=== PATIENT | male | born 1950 | race Caucasian/White ===

== ENCOUNTER 2019-06-23 09:11 | Inpatient (IN) ==
[2019-06-23] MEDS ORDERED: ONDANSETRON HCL/PF 2 MG/ML VIAL IV PRN (15:55)
[2019-06-23] MEDS ORDERED: ENOXAPARIN SODIUM 40 MG/0.4 ML SYRG SC SCH (16:00)
--- NOTE | 2019-06-23 16:22 | HP ---
Chief Complaint - Chief Complaint Date of Service: 06/23/19 Time of Service: 09:30 Chief Complaint: vomiting History of Present Illness: Kamran is a 69 y/o man who reports that he has been vomiting since Thursday pm. pt reports his stomach aches. pt reports that he can not lay on his right side. pt reports he has not had a bowel movement since 3 days ago then it was diarrhea. He only had one episode of diarrhea. In talking with him further, his symptoms actually began last THURSDAY evening. They persist. He has never had a similar kind of vomiting before. Both he and his noticed he has had abdominal distension, which he has also never had previously. When he vomits, he becomes a little less distended, but then the distension returns. He cannot even keep water down. Lying on his right side increases his generalized abdominal pain which feels like bloating or gas. When he vomits he feels better for a little while but then the bloating and pain come back. He has had only one stool since Thursday, which was brown diarrhea. No hematemesis. No blood in his diarrhea stool. He has a history of GERD and takes omeprazole. He has early Parkinson's and is on amantadine. he has a history of hypertension and takes atenolol. His weight is stable going back to March [id number], even at today's visit. He has had no fever, chills or sweats. He has no urinary symptoms. Medical History (Last Reviewed 06/23/19 @ 16:12 by Bird Gomez MD) Hypertension (Chronic) Arthritis (Chronic) Cyst Onset Date: ~1948 subcutaneous cyst located on the right buttock , bilopsy done Neoplasm of uncertain behavior Onset Date: ~1948 right upper back 0.6cm, biopsy done. / papule with dark center on left upper back , biopsy done. Telangiectasis Onset Date: Unknown scattered broken blood vessels located on left nose Depression Onset Date: ~07/18/16 GERD (gastroesophageal reflux disease) Gout Hearing loss Impotence Moderate episode of recurrent major depressive disorder Raynauds disease Onset Date: ~2005 Rhinitis, chronic Onset Date: ~05/27/13 Benign familial tremor Colon polyp Onset Date: ~2013 Dysphagia Hypertrophy of prostate with urinary obstruction Lack of motivation Rosacea Testicular cancer Onset Date: ~1980 Thoracic spine pain Onset Date: ~10/16/14 Surgical History: Surgical History (Last Reviewed 06/23/19 @ 16:12 by Bird Gomez MD) Cataract Onset Date: ~10/2012 bilateral. 08/2010 right and 10/2012 left Cornea transplant recipient Onset Date: ~12/2016 bilateral sept. 17th Esophageal dilatation History of esophagogastroduodenoscopy nichole History of nonmelanoma skin cancer Onset Date: ~03/2018 [facility]-removed two cancerous areas on back History of orchiectomy H/O colonoscopy Onset Date: ~07/18/15 06/21/13 with biopsy Vinicio tubular adenoma x5, one with serrated features. 07/18/15 [facility] negative recheck 5 years. Family History: Family History (Last Reviewed 06/23/19 @ 16:12 by Bird Gomez MD) Brother Cancer prostate and colon Sister Cancer breast Sister Cornea transplant recipient Mother CAD (coronary artery disease) Hypertension Myocardial infarction Father Cancer colon Brother S/P triple vessel bypass ATV accident causing injury Social History: (Last Reviewed 06/23/19 @ 16:12 by Bird Gomez MD) Social History: adopted: No foster care: No half-way: No Marital status: lives independently: No household members: spouse number of children: 3 caregiver/support person: No current occupational status: retired Highest education level completed: high school graduate Service: No Tobacco: Smoking Status: Current every day smoker Smokeless tobacco user: chewing tobacco Alcohol: alcohol intake: current Alcohol type: beer alcohol intake frequency: holiday/special occasion Substance Use: substance use type: does not use Dietary Habits: caffeine: Yes Review Of Systems (GEN) - Review of Systems Generalized/Overall Review: Absent: Chills, Fever EENTM: Absent: Eye Pain, Blurred Vision Respiratory: Absent: Cough, Shortness of Breath Cardiac: Absent: Chest Pain, Edema Abdominal: Present: Nausea, Vomiting, Abdominal Pain, Diarrhea. Absent: Hematemesis, Constipation, Melena, Bright blood from rectum Genitourinary: Absent: Burning, Urgency, Frequency Musculoskeletal: Present: Joint Pain - mild chronic Neurological: Present: Tremors, Pre-existing Deficit. Absent: Headache Skin: Absent: Lesions, Rash Endocrine: Present: No Symptoms Reported Misc: All systems neg except as marked Allergies/Adverse Reactions: Allergies Allergy/AdvReac Type Severity Reaction Status Date / Time iodine AdvReac Mild RASH Verified 06/23/19 16:03 Home Medications: HOME MEDICATIONS Ibuprofen [Motrin] 200 - 400 mg PO Q6H PRN 06/29/15 [Last Taken Unknown] Multivitamins [Multivitamin Leanna] 1 cap PO DAILY 06/29/15 [Last Taken Unknown] prednisoLONE ACETATE [Pred Forte 1%] 1 drp OP HS 06/29/15 [Last Taken Unknown] aspirin 81 mg tablet,delayed release 81 mg PO DAILY 01/22/18 [Last Taken Unknown] omeprazole 20 mg tablet,delayed release 20 mg PO DAILY #90 tab 03/11/18 [Last Taken Unknown] minocycline 100 mg capsule 100 mg PO DAILY cap 05/28/18 [Last Taken Unknown] carboxymethylcellulose sodium 0.5 % eye drops 1 drp OP QID 08/03/18 [Last Taken Unknown] atenolol 50 mg tablet 50 mg PO BID #60 tab 05/03/19 [Last Taken Unknown] tamsulosin 0.4 mg capsule 0.8 mg PO DAILY #60 cap 05/03/19 [Last Taken Unknown] amantadine HCl 100 mg capsule 100 mg PO BID #60 cap 06/10/19 [Last Taken Unknown] clonazepam 0.5 mg tablet See Rx Instructions .ROUTE .COMPLEX #60 tablet 06/10/19 [Last Taken Unknown] duloxetine 30 mg capsule,delayed release 30 mg PO DAILY #90 cap 06/10/19 [Last Taken Unknown] levothyroxine 50 mcg tablet 50 mcg PO DAILY #30 tab 06/10/19 [Last Taken Unknown] finasteride 5 mg tablet 5 mg PO DAILY #90 tab 06/22/19 [Last Taken Unknown] ondansetron 8 mg disintegrating tablet 8 mg PO QID #30 tab 06/23/19 [Last Taken Unknown] Exam - Exam Constitutional: Present: Alert, Oriented x3, Cooperative, Well developed, Well nourished, No distress ENT Exam: Present: normal ENT inspection, hearing grossly normal Eye Exam: bilateral eye: normal inspection, PERRL, EOMI Neck: Absent: lymphadenopathy (R), lymphadenopathy (L), thyromegaly Back Exam: Present: normal inspection, no CVA tenderness Respiratory: Present: lungs clear, no respiratory distress Cardiovascular/Chest: Present: normal peripheral pulses, regular rate, rhythm, no gallop, no JVD, no murmur Peripheral Pulses: carotid (R): 1+, carotid (L): 1+, dorsalis-pedis (R): 1+, dorsalis-pedis (L): 1+ Abdomen: Present: soft, no hepatospenomegaly, no masses, tender - mildy, diffusely, more so in upper abdomen, distended - slight, hypoactive /Rectal: Present: Exam deferred Extremity: Present: normal inspection, no pedal edema, normal capillary refill Skin Exam: Present: normal color, warm/dry, no cyanosis Lymphatic: Present: no adenopathy Neurologic: Present: normal mood/affect. Absent: motor weakness Appearance: Present: appropriate appearance, appropriate insight, neat, no memory impairment Eye contact: Present: cooperative, good eye contact, normal speech Thoughts: Present: normal thought pattern Diagnostic Studies: as an oupt earlier today had a mildly elevated wbc count, a slightly low sodium and a urinalysis with 2 plus bacteria but no leukocytes and negative for nitrate. culture sent. CT of abdomen and pelvis today reported by radiologist to show a partial small bowel obstruction in terminal ilium. Assessment/Plan - Assessment/Plan (1) Nausea and vomiting Assessment: plan ng tube and as needed iv ondansetron. has slightly low sodium. will give ns iv and recheck chemistries tomorrow morning. Problem: Acute Qualifiers: Vomiting type: unspecified Vomiting Intractability: non-intractable Qualified Code(s): R11.2 - Nausea with vomiting, unspecified (2) Generalized abdominal pain Problem: Acute (3) Partial small bowel obstruction Assessment: slightly elevated wbc and slightly low sodium. plan surgery consult, NG tube, IV and following. Problem: Acute (4) Tobacco abuse Problem: Chronic (5) Parkinsons Problem: Chronic (6) GERD (gastroesophageal reflux disease) Problem: Chronic Qualifiers: Esophagitis presence: esophagitis presence not specified Qualified Code(s): K21.9 - Gastro-esophageal reflux disease without esophagitis (7) Benign essential hypertension Problem: Chronic
--- NOTE | 2019-06-23 17:38 | PN ---
Progess Note - Interim Date: 06/23/19 Time: 17:37 Narrative: 06/23/19 17:37 ng tube in good position and may be used.
--- NOTE | 2019-06-23 17:42 | CONS ---
HPI - General Date of Service: 06/23/19 Source: patient, family, RN/MD, RN notes reviewed, old records Exam Limitations: no limitations - History of Present Illness Timing/Duration: other - Since 06/19/2019 Modifying Factors - (Worsens): Reports: eating Modifying Factors - (Improves): Reports: other - Vomiting Associated Symptoms: other - No fever, chills. He does report some abdominal distention and discomfort which is relieved by vomiting Allergies/Adverse Reactions: Allergies iodine Adverse Reaction (Mild, Verified 06/23/19 16:03) RASH Home Medications: Home Medications Medication Instructions Recorded Last Taken Ibuprofen [Motrin] 200 - 400 mg PO Q6H PRN 06/29/15 Unknown Multivitamins [Multivitamin Leanna] 1 cap PO DAILY 06/29/15 Unknown prednisoLONE ACETATE [Pred Forte 1 drp EACHEYE HS 06/29/15 Unknown 1%] aspirin 81 mg tablet,delayed 81 mg PO HS 01/22/18 Unknown release omeprazole 20 mg tablet,delayed 20 mg PO DAILY #90 tab 03/11/18 Unknown release minocycline 100 mg capsule 100 mg PO DAILY cap 05/28/18 Unknown carboxymethylcellulose sodium 0.5 1 drp EACHEYE QID 08/03/18 Unknown % eye drops atenolol 50 mg tablet 50 mg PO BID #60 tab 05/03/19 Unknown tamsulosin 0.4 mg capsule 0.8 mg PO DAILY #60 cap 05/03/19 Unknown amantadine HCl 100 mg capsule 100 mg PO BID #60 cap 06/10/19 Unknown duloxetine 30 mg capsule,delayed 30 mg PO DAILY #90 cap 06/10/19 Unknown release levothyroxine 50 mcg tablet 50 mcg PO DAILY #30 tab 06/10/19 Unknown finasteride 5 mg tablet 5 mg PO DAILY #90 tab 06/22/19 Unknown clonazePAM [Klonopin] 0.5 mg PO BID 06/23/19 Unknown ondansetron 8 mg disintegrating 8 mg PO QID #30 tab 06/23/19 Unknown tablet Procedures Closure of skin and subcutaneous tissue of other sites (05/03/03) Inspection of Lower Intestinal Tract, Via Natural or Artificial Opening Endoscopic (07/18/15) Review of Systems - Review of Systems Generalized/Overall Review: Present: Malaise. Absent: Chills, Fever EENTM: Present: No Symptoms Reported Respiratory: Absent: Cough, Shortness of Breath Cardiac: Absent: Chest Pain Abdominal: Present: Nausea, Vomiting, Diarrhea - 1 stool this week and it was "diarrhea", otherwise no bowel movements since 06/19/2019, Other - He has had severe heartburn all week. Absent: Hematemesis Musculoskeletal: Present: No Symptoms Reported Neurological: Present: Other - His Parkinson's disease is stable Skin: Present: No Symptoms Reported Endocrine: Present: No Symptoms Reported Physical Examination - Exam Vital Signs: Vital Signs - Last Taken Temp 36.4 C 06/23/19 16:08 Pulse 67 06/23/19 16:08 Resp 16 06/23/19 16:08 BP 157/82 H 06/23/19 16:08 Pulse Ox 99 06/23/19 16:08 O2 Oxygen Delivery Method Room Air Constitutional: Present: Alert, Oriented x3, Cooperative, Well nourished, Mild d istress ENT Exam: Present: normal ENT inspection, other - NG tube is present Eye Exam: bilateral eye: normal inspection Neck: Present: normal inspection Respiratory: Present: no respiratory distress Cardiovascular/Chest: Present: regular rate, rhythm Abdomen: Present: other - Slightly distended, but soft. Tympany to percussion throughout. No percussion tenderness. He has some mild discomfort to direct palpation in all 4 quadrants, but demonstrates no guarding or rebound No abdominal incisions. 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 The appendix appears normal. There is no inflammation adjacent to the small intestine. His laboratory data was obtained through an office order so it is not in the acute packet--- these results were reviewed. - Assessments/Findings (1) Partial small bowel obstruction Diagnosis(s): He has not had previous abdominal surgery, and so there is no reason for adhesions. There is no inflammation adjacent to the small bowel to suggest inflammatory bowel disease. The likelihood of a small bowel tumor is low. His last colonoscopy was normal. The appendix appears normal on CT. He has passed some gas since admission. He feels better since the nasogastric tube was placed and his stomach emptied. Would recommend continued NG suction overnight. We will repeat a flat and upright abdominal exam in the morning and proceed according to the results. Problem: Acute
[2019-06-23] MEDS: ENOXAPARIN SODIUM 40 MG/0.4 ML SYRG SC SCH (19:08)
[2019-06-23] MEDS: NORMAL SALINE 1,000 ML IV PRN (19:08)
[2019-06-23] MEDS: PANTOPRAZOLE SODIUM 40 MG in NORMAL SALINE 100 ML IV SCH (19:13)
[2019-06-24] MEDS: NORMAL SALINE 1,000 ML IV PRN ×3 (03:35→20:52)
[2019-06-24] MEDS ORDERED: TETRACAINE/BENZOCAINE/BUTAMBEN 20 SPRAY BTL TP PRN (06:19)
[2019-06-24 06:32] LABS: Hemoglobin 13.6 gm/dL (13.5-18.0); Mean Corpuscular Hemoglobin 31.3 pg (27-31); Mean Platelet Volume 10.8 fl (8-11.3); Neutrophil # 8.9 K/mm3 (1.3-6.0); Neutrophil % 76.8 % (42-75.0); Platelet Count 185 K/mm3 (150-450); Red Blood Count 4.35 M/mm3 (4.7-6.0); Red Cell Distribution Width 12.9 % (11.5-14.0); White Blood Count 11.6 K/mm3 (4.0-10.5)
[2019-06-24 06:41] LABS: Albumin * 3.5 gm/dl (3.4-5.0); Anion Gap 11.8 mmol/L (6.8-13.8); BUN/Creatinine Ratio 10.7 (9.0-21.6); Bilirubin, Total 0.8 mg/dL (0.0-1.1); Ca. Corrected For Albumin 8.6 mg/dL (8.4-10.2); Calcium * 8.5 mg/dL (7.9-10.9); Carbon Dioxide 26.4 mmol/L (24-32.6); Potassium 4.2 mmol/L (3.4-4.6)
--- NOTE | 2019-06-24 06:58 | PN ---
Subjective - Date and Time Seen Date: 06/24/19 Time: 05:55 Subjective Narrative: ng tube hurts throat. feels much better otherwise. no nausea. no abdominal pain. abdomen is flat now. has had two bowel movements since admission. nurse emptied 700 ml gastric fluid this morning representing the state game protector accumulation. labs are pending this morning. Objective - Review of Systems Generalized/Overall Review: Denies: Weakness, Chills, Fever, Diaphoresis EENTM: Denies: Eye Pain, Blurred Vision Respiratory: Denies: Cough, Shortness of Breath Cardiac: Denies: Chest Pain, Edema Abdominal: Denies: Nausea, Abdominal Pain, Constipation, Diarrhea Genitourinary Symptoms: Denies: Burning, Frequency Musculoskeletal Complaints: Denies: Joint Pain, Back Pain Neurological: Denies: Headache, Anxiety, Depressed Skin: Denies: Lesions, Rash Endocrine: Denies: Intolerance to Cold, Intolerance to Heat - Vitals Vitals: Last Vital Signs Temp 37.0 C 06/24/19 02:14 Pulse 71 06/24/19 02:14 Resp 18 06/24/19 02:14 BP 144/77 06/24/19 02:14 Pulse Ox 98 06/24/19 02:14 bp slightly high, but not with the new BP targets for those 60 and older, less than 150/90. vitals stable. - Abnormal Lab Findings Abnormal Lab Findings: Abnormal Lab Results 06/24/19 Range/Units 06:10 WBC 11.6 H (4.0-10.5) K/mm3 RBC 4.35 L (4.7-6.0) M/mm3 Hct 40.0 L (42.0-52.0) % MCH 31.3 H (27-31) pg Immature Gran % (Auto) 0.50 H (0.001-0.429) % Immature Gran # (Auto) 0.06 H (0.000-0.0310) K/mm3 Neutrophils % 76.8 H (42-75.0) % Lymphocytes % 9.7 L (20-51) % Monocytes % 10.9 H (0.0-9) % Neutrophils # 8.9 H (1.3-6.0) K/mm3 Lymphocytes # 1.13 L (1.5-3.5) k/mm3 Monocytes # 1.3 H (0.0-1.0) k/mm3 - Exam Constitutional: Present: Alert, Oriented x3, Cooperative, Well developed, Well nourished, No distress ENT Exam: Present: normal ENT inspection, hearing grossly normal Neck: Present: normal inspection. Absent: lymphadenopathy (R), lymphadenopathy (L), thyromegaly Breasts: Present: Other - male Respiratory: Present: lungs clear, no respiratory distress Cardiovascular/Chest: Present: normal peripheral pulses, regular rate, rhythm, no edema, no gallop, no JVD, no murmur Abdomen: Present: soft, nontender, nondistended, no hepatospenomegaly, no mass es, hypoactive Extremity: Present: normal range of motion Skin Exam: Present: normal color, warm/dry, no cyanosis Lymphatic: Present: no adenopathy Neurologic: Present: normal mood/affect. Absent: motor weakness Appearance: Present: appropriate appearance, appropriate insight, neat, no memory impairment Eye contact: Present: cooperative, good eye contact, normal speech Thoughts: Present: normal thought pattern Assessment/Plan - Problems/Diagnosis (1) Nausea and vomiting Problem: Acute Qualifiers: Vomiting type: unspecified Vomiting Intractability: non-intractable Qualified Code(s): R11.2 - Nausea with vomiting, unspecified Narrative: will watch ng output till noon today. if minimal, will clamp ng, then possibly home tomorrow or the next day. waiting on this morning's labs. (2) Generalized abdominal pain Problem: Resolved (3) Partial small bowel obstruction Problem: Acute Narrative: will do small bowel series as outpatient. (4) Tobacco abuse Problem: Chronic (5) Parkinsons Problem: Chronic (6) GERD (gastroesophageal reflux disease) Problem: Chronic Qualifiers: Esophagitis presence: esophagitis presence not specified Qualified Code(s): K21.9 - Gastro-esophageal reflux disease without esophagitis (7) Benign essential hypertension Problem: Chronic
[2019-06-24] MEDS ORDERED: BISACODYL 5 MG TABLET.DR PO ONE (14:51)
[2019-06-24] MEDS: PANTOPRAZOLE SODIUM 40 MG in NORMAL SALINE 100 ML IV SCH (17:23)
[2019-06-24] MEDS: ENOXAPARIN SODIUM 40 MG/0.4 ML SYRG SC SCH (17:23)
--- NOTE | 2019-06-24 18:12 | PN ---
Subjective - Date and Time Seen Date: 06/24/19 Time: 09:00 Objective Objective Narrative: feels much better. Two stools last night and some gas. No nausea - Review of Systems Generalized/Overall Review: Denies: Chills, Fever EENTM: Reports: Throat Pain - from NG Respiratory: Denies: Cough, Shortness of Breath Cardiac: Denies: Chest Pain Abdominal: Reports: Other - no pain, less distention Genitourinary Symptoms: Reports: No Symptoms Reported Musculoskeletal Complaints: Reports: No Symptoms Reported Neurological: Reports: No Symptoms Reported Skin: Reports: No Symptoms Reported - Vitals Vitals: Last Vital Signs Temp 37.2 C 06/24/19 14:00 Pulse 56 L 06/24/19 14:00 Resp 20 06/24/19 14:00 BP 145/76 06/24/19 14:00 Pulse Ox 99 06/24/19 14:00 - Abnormal Lab Findings Abnormal Lab Findings: Abnormal Lab Results 06/24/19 Range/Units 06:10 WBC 11.6 H (4.0-10.5) K/mm3 RBC 4.35 L (4.7-6.0) M/mm3 Hct 40.0 L (42.0-52.0) % MCH 31.3 H (27-31) pg Immature Gran % (Auto) 0.50 H (0.001-0.429) % Immature Gran # (Auto) 0.06 H (0.000-0.0310) K/mm3 Neutrophils % 76.8 H (42-75.0) % Lymphocytes % 9.7 L (20-51) % Monocytes % 10.9 H (0.0-9) % Neutrophils # 8.9 H (1.3-6.0) K/mm3 Lymphocytes # 1.13 L (1.5-3.5) k/mm3 Monocytes # 1.3 H (0.0-1.0) k/mm3 - Exam Constitutional: Present: Alert, Oriented x3, Cooperative, Well developed, No distress ENT Exam: Present: normal ENT inspection Neck: Present: normal inspection Respiratory: Present: no respiratory distress Cardiovascular/Chest: Present: regular rate, rhythm Abdomen: Present: soft, nontender, nondistended /Rectal: Present: Exam deferred Extremity: Present: normal inspection Skin Exam: Present: normal color Appearance: Present: appropriate appearance, appropriate insight, neat Eye contact: Present: cooperative, good eye contact, normal speech Thoughts: Present: normal thought pattern Assessment/Plan Plan Narrative: will trial clear liquids with NG clamped. Dulcolax. Ambulate. If tolerates po could d/c NG - Problems/Diagnosis (1) Partial small bowel obstruction Problem: Acute
[2019-06-25] MEDS: NORMAL SALINE 1,000 ML IV PRN ×3 (04:40→19:44)
[2019-06-25 06:39] LABS: Hematocrit 40.3 % (42.0-52.0); Hemoglobin 13.5 gm/dL (13.5-18.0); Mean Cell Volume 90.8 fl (78-100); Mean Corpuscular Hemoglobin 30.4 pg (27-31); Mean Corpuscular Hgb Conc 33.5 g/dl (32-36); Mean Platelet Volume 10.4 fl (8-11.3); Neutrophil # 8.2 K/mm3 (1.3-6.0); Platelet Count 179 K/mm3 (150-450); Red Blood Count 4.44 M/mm3 (4.7-6.0); Red Cell Distribution Width 12.6 % (11.5-14.0); White Blood Count 10.2 K/mm3 (4.0-10.5)
[2019-06-25 06:47] LABS: Anion Gap 13.3 mmol/L (6.8-13.8); BUN/Creatinine Ratio 10.3 (9.0-21.6); Calcium * 8.4 mg/dL (7.9-10.9); Carbon Dioxide 23.4 mmol/L (24-32.6); Estimated Creat Clear 69.5; Potassium 3.7 mmol/L (3.4-4.6)
--- NOTE | 2019-06-25 07:51 | PN ---
Subjective - Date and Time Seen Date: 06/25/19 Time: 07:45 Subjective Narrative: He feels much better except he has a sore throat and a cough. He feels hungry. He has moved his bowels and passed gas. He has no abdominal pain Objective - Review of Systems Generalized/Overall Review: Denies: Chills, Fever EENTM: Reports: Throat Pain Respiratory: Reports: Cough. Denies: Shortness of Breath Cardiac: Reports: Other - His blood pressure has been elevated. Denies: Chest Pain Abdominal: Denies: Nausea, Vomiting, Abdominal Pain Genitourinary Symptoms: Reports: No Symptoms Reported Musculoskeletal Complaints: Reports: No Symptoms Reported Skin: Reports: No Symptoms Reported - Vitals Vitals: Last Vital Signs Temp 37.1 C 06/25/19 06:26 Pulse 80 06/25/19 06:26 Resp 18 06/25/19 06:26 BP 166/71 H 06/25/19 06:26 Pulse Ox 93 06/25/19 06:26 - Abnormal Lab Findings Abnormal Lab Findings: Abnormal Lab Results 06/25/19 06/25/19 Range/Units 06:30 06:30 RBC 4.44 L (4.7-6.0) M/mm3 Hct 40.3 L (42.0-52.0) % Neutrophils % 80.0 H (42-75.0) % Lymphocytes % 7.5 L (20-51) % Monocytes % 11.1 H (0.0-9) % Neutrophils # 8.2 H (1.3-6.0) K/mm3 Lymphocytes # 0.76 L (1.5-3.5) k/mm3 Monocytes # 1.1 H (0.0-1.0) k/mm3 Carbon Dioxide 23.4 L (24-32.6) mmol/L Random Glucose 126 H (70-110) mg/dL - Exam Constitutional: Present: Alert, Oriented x3, Cooperative, Well developed, Well nourished, No distress ENT Exam: Present: normal ENT inspection, other - Sore throat, nasal congestion, hoarse Neck: Present: normal inspection Respiratory: Present: other - Upper airway noise Cardiovascular/Chest: Present: regular rate, rhythm Abdomen: Present: soft, nontender, other - Still somewhat tympanitic, however absolutely no tenderness /Rectal: Present: Exam deferred Extremity: Present: normal range of motion, normal inspection Skin Exam: Present: normal color Neurologic: Present: leasing specialist II-XII nml as tested, no motor/sensory deficits Appearance: Present: appropriate appearance, appropriate insight, no memory impairment Eye contact: Present: cooperative, good eye contact Thoughts: Present: normal thought pattern Assessment/Plan Plan Narrative: We will discontinue the nasogastric tube and advance diet. Encourage ambulation. Will restart antihypertensive and levothyroxine. Recommend follow-up with Dr. Elizabeth Brown after discharge to consider small bowel follow-through if needed - Problems/Diagnosis (1) Partial small bowel obstruction Problem: Acute
[2019-06-25] MEDS: LEVOTHYROXINE SODIUM 50 MCG TABLET PO SCH (08:54)
[2019-06-25] MEDS: ATENOLOL 50 MG TABLET PO SCH ×2 (08:54→21:07)
[2019-06-25] MEDS ORDERED: clonazePAM 0.5 MG TABLET PO SCH (09:30)
[2019-06-25] MEDS ORDERED: AMANTADINE HCL 100 MG CAPSULE PO SCH (09:30)
[2019-06-25] MEDS ORDERED: ACETAMINOPHEN 500 MG TABLET PO ONE (11:00)
[2019-06-25] MEDS: ONDANSETRON 8 MG TAB.RAPDIS PO SCH ×3 (12:50→21:08)
[2019-06-25] MEDS: PANTOPRAZOLE SODIUM 40 MG in NORMAL SALINE 100 ML IV SCH ×2 (16:33→16:44)
--- NOTE | 2019-06-25 16:33 | PN ---
Dictated Progress Note - Date and Time Seen: Date: 06/25/19 Time: 16:31 - Progress Note Narrative: Vital Signs - Last Taken Temp 37.3 C 06/25/19 14:05 Pulse 83 06/25/19 14:05 Resp 16 06/25/19 14:05 BP 137/75 06/25/19 14:05 Pulse Ox 95 06/25/19 14:05 Abnormal/Pending Laboratory Last 24 HRS 06/25/19 06/25/19 06:30 06:30 RBC 4.44 L Hct 40.3 L Neutrophils % 80.0 H Lymphocytes % 7.5 L Monocytes % 11.1 H Neutrophils # 8.2 H Lymphocytes # 0.76 L Monocytes # 1.1 H Carbon Dioxide 23.4 L Random Glucose 126 H Although he had tolerated clear liquids with the NG tube clamped, when his diet was advanced he has become more distended and tympanitic. Repeat flat and upright abdominal x-rays show redevelopment of air-fluid levels compatible with a high-grade distal small bowel obstruction I discussed the situation with the patient and his . He has failed a trial of NG decompression. The most likely etiology for the obstruction would be due to previous radiation therapy which did include the right lower quadrant. I explained what would be involved with exploratory laparotomy for release of the obstruction. This may involve small bowel resection. After interactive discussion their questions were answered to their apparent satisfaction and he has given informed consent for exploratory laparotomy for release of small bowel obstruction. We will employ SCDs, chlorhexidine wipes, and IV Mefoxin will be given preop.
[2019-06-25] MEDS ORDERED: fentaNYL CITRATE/PF 50 MCG/ML AMPUL ONE (16:50)
[2019-06-25] MEDS ORDERED: HYDROmorphone HCL 2 MG/ML VIAL ONE (16:50)
[2019-06-25] MEDS ORDERED: LIDOCAINE HCL 20 ML VIAL ONE (16:50)
[2019-06-25] MEDS ORDERED: ONDANSETRON HCL/PF 2 MG/ML VIAL ONE (16:50)
[2019-06-25] MEDS ORDERED: NEOSTIGMINE METHYLSULFATE 1 MG/ML VIAL ONE (16:50)
[2019-06-25] MEDS ORDERED: ROCURONIUM BROMIDE 10 MG/ML VIAL ONE (16:51)
[2019-06-25] MEDS ORDERED: SUCCINYLCHOLINE CHLORIDE 20 MG/ML VIAL ONE (16:51)
[2019-06-25] MEDS ORDERED: GLYCOPYRROLATE 0.2 MG/ML VIAL ONE (16:51)
[2019-06-25] MEDS ORDERED: PROPOFOL VIAL IV ONE (16:51)
--- NOTE | 2019-06-25 17:12 | ANES ---
Anesthesia Pre Procedure Eval Vitals/Labs: Last Vital Signs Temp 37.3 C 06/25/19 14:05 Pulse 83 06/25/19 14:05 Resp 16 06/25/19 14:05 BP 137/75 06/25/19 14:05 Pulse Ox 95 06/25/19 14:05 HOME MEDICATIONS Ibuprofen [Motrin] 200 - 400 mg PO Q6H PRN 06/29/15 [Last Taken Unknown] Multivitamins [Multivitamin Leanna] 1 cap PO DAILY 06/29/15 [Last Taken Unknown] prednisoLONE ACETATE [Pred Forte 1%] 1 drp EACHEYE HS 06/29/15 [Last Taken Unknown] aspirin 81 mg tablet,delayed release 81 mg PO HS 01/22/18 [Last Taken Unknown] omeprazole 20 mg tablet,delayed release 20 mg PO DAILY #90 tab 03/11/18 [Last Taken Unknown] minocycline 100 mg capsule 100 mg PO DAILY cap 05/28/18 [Last Taken Unknown] carboxymethylcellulose sodium 0.5 % eye drops 1 drp EACHEYE QID 08/03/18 [Last Taken Unknown] atenolol 50 mg tablet 50 mg PO BID #60 tab 05/03/19 [Last Taken Unknown] tamsulosin 0.4 mg capsule 0.8 mg PO DAILY #60 cap 05/03/19 [Last Taken Unknown] amantadine HCl 100 mg capsule 100 mg PO BID #60 cap 06/10/19 [Last Taken Unknown] duloxetine 30 mg capsule,delayed release 30 mg PO DAILY #90 cap 06/10/19 [Last Taken Unknown] levothyroxine 50 mcg tablet 50 mcg PO DAILY #30 tab 06/10/19 [Last Taken Unknown] finasteride 5 mg tablet 5 mg PO DAILY #90 tab 06/22/19 [Last Taken Unknown] clonazePAM [Klonopin] 0.5 mg PO BID 06/23/19 [Last Taken Unknown] ondansetron 8 mg disintegrating tablet 8 mg PO QID #30 tab 06/23/19 [Last Taken Unknown] Allergies/Adverse Reactions: Allergies Allergy/AdvReac Type Severity Reaction Status Date / Time iodine AdvReac Mild RASH Verified 06/23/19 16:03 - Planned Procedure Planned Procedure: Exp laparoscopy Medication List Reviewed:: Yes Allergies Verified: Yes Medical History (Last Reviewed 06/25/19 @ 17:11 by Rick Chavis CRNA) Hypertension (Chronic) Arthritis (Chronic) Cyst Onset Date: ~1948 subcutaneous cyst located on the right buttock , bilopsy done Neoplasm of uncertain behavior Onset Date: ~1948 right upper back 0.6cm, biopsy done. / papule with dark center on left upper back , biopsy done. Telangiectasis Onset Date: Unknown scattered broken blood vessels located on left nose Depression Onset Date: ~07/18/16 GERD (gastroesophageal reflux disease) Gout Hearing loss Impotence Moderate episode of recurrent major depressive disorder Raynauds disease Onset Date: ~2005 Rhinitis, chronic Onset Date: ~05/27/13 Benign familial tremor Colon polyp Onset Date: ~2013 Dysphagia Hypertrophy of prostate with urinary obstruction Lack of motivation Rosacea Testicular cancer Onset Date: ~1980 Thoracic spine pain Onset Date: ~10/16/14 Surgical History (Last Reviewed 06/25/19 @ 17:11 by Rick Chavis CRNA) Cataract Onset Date: ~10/2012 bilateral. 08/2010 right and 10/2012 left Cornea transplant recipient Onset Date: ~12/2016 bilateral sept. 17 Esophageal dilatation History of esophagogastroduodenoscopy nichole History of nonmelanoma skin cancer Onset Date: ~03/2018 [facility]-removed two cancerous areas on back History of orchiectomy H/O colonoscopy Onset Date: ~07/18/15 06/21/13 with biopsy Vinicio tubular adenoma x5, one with serrated features. 07/18/15 [facility] negative recheck 5 years. Family History (Last Reviewed 06/25/19 @ 17:11 by Rick Chavis CRNA) Brother Cancer prostate and colon Sister Cancer breast Sister Cornea transplant recipient Mother CAD (coronary artery disease) Hypertension Myocardial infarction Father Cancer colon Brother S/P triple vessel bypass ATV accident causing injury - Family Anesthesia History Family History:: no untoward family reactions to anesthesia, no familial bleeding tendencies, no family history of clotting disorders, no family history of premature - Airway/Neck/Teeth Within Normal Limits:: Yes Teeth Condition: intact Mallampatti Score: 4 Thyromental (T-M) distance: > 6 cm Mandibulo Hyoid distance: > 3 cm - Respiratory Respiratory Physical: lungs clear Smoking Status: Current every day smoker - chews Discussed smoking cessation including day of surgery: Yes Sleep Apnea currently treated: No Sleep Apnea by current assessment: No Discussed Risks/Treatment of TAO: No - Cardiovascular Tolerate Activity: Fair Heart Sounds: S1 & S2, Regular - Gastrointestinal NPO since: 7am - Anesthesia Assessment and Plan ASA Class: PS, III, E Anesthesia Type Plan: General ET
[2019-06-25] MEDS ORDERED: BUPIVACAINE HCL/EPINEPHRINE 50 ML VIAL ONE (17:22)
[2019-06-25] MEDS ORDERED: TAMSULOSIN HCL 0.4 MG CAP.SR.24H PO SCH (18:00)
[2019-06-25] MEDS ORDERED: BUPIVACAINE HCL/EPINEPHRINE 50 ML VIAL IJ ONE (18:06)
[2019-06-25] MEDS: RINGER'S SOLUTION,LACTATED 1,000 ML IV PRN ×2 (19:00→19:41)
[2019-06-25] MEDS ORDERED: MUPIROCIN 22 APPL TUBE TP ONE (19:06)
--- NOTE | 2019-06-25 19:43 | ANES ---
Post Anesthesia Discharge - Transfer of Care Transfer of Care handoff given to nurse: Yes - Discharge from PACU Discharge from PACU when meets criteria: Yes - Discharge to ASU Discharge to ASU-no complications/pt stable: Yes
--- NOTE | 2019-06-25 20:07 | OR ---
Operative Report - Dictated Report Narrative: OPERATIVE REPORT DATE OF OPERATION: 06/25/2019 PREOPERATIVE DIAGNOSIS: Small bowel obstruction POSTOPERATIVE DIAGNOSIS: Small bowel obstruction from adhesions due to radiation OPERATION: Exploratory laparotomy with lysis of adhesions SURGEON: Carlos Cooper MD ANESTHESIA: General endotracheal Rick Chavis CRNA INDICATIONS FOR PROCEDURE: The patient is a 69-year-old male who was admitted with a partial small bowel obstruction. Initially he responded to nasogastric suction however became re-distended with x-ray evidence of persistent small bowel obstruction FINDINGS: Small bowel obstruction in the terminal ileum due to adhesions secondary to prior radiation therapy NARRATIVE OF PROCEDURE: The patient was identified preoperatively and prior to the administration of anesthetic a multidisciplinary timeout was observed. The patient was placed supine, SCDs applied, 2 g of intravenous Mefoxin administered. General endotracheal anesthetic was administered. A Boss catheter and nasogastric tube were placed. The patient's abdomen was prepped wi th Betadine solution and the midline isolated with 4 sterile towels. The remainder the patient was covered with a sterile disposable drape. A low midline skin incision was made skirting to the right of the umbilicus. Dissection was carried through subcutaneous tissue with electrocautery. There was marked radiation change noted in the subcutaneous tissue in the lower one third of the incision. The fascia of the linea alba was incised. The peritoneum was elevated and incised to allow entry into the abdomen under direct vision. There was a small amount of clear yellow peritoneal fluid which was suctioned. A forefinger was inserted. There were no local adhesions, and the fascial incision was extended. Manual and visual exploration of the abdomen was then performed. The proximal small bowel was dilated but viable. The bowel was traced distally where it dove into the right lower quadrant. The terminal ileum was markedly angulated due to foreshortening of the mesentery from radiation reaction. A Bookwalter self-retaining retractor was placed in the right lower quadrant exposed. The foreshortened small bowel mesentery was released by electrocautery division of the foreshortening adhesive tissue. The mobilized terminal ileum was traced traced distally to the ileocecal valve. The peritoneal reflection involving the terminal ileum and cecum was incised to allow the entire terminal ileum to be straightened and inspected. There was evidence of radiation reaction in the last 15-20 cm of the terminal ileum however small bowel content could be readily stripped through this segment into the cecum. Additional small bowel content from the proximal small bowel was then stripped distally, and again passed easily into the cecum. The pelvis was then suctioned clean. The right lower quadrant was inspected for hemostasis which appeared complete. After receiving a correct sponge needle and instrument count attention was turned to closing the abdomen. The small bowel was replaced anatomically and covered with a greater omentum. The fascia and peritoneum in the midline was entered oxygenated with a running suture of 0 PDS. The skin was closed with shani. The operative site was washed and dried. A dressing of Bactroban ointment, folded 4 x 4's, and Medipore tape was applied. The operative procedure was terminated at this point. The patient tolerated the an esthetic and procedure well without complication. There was no measurable blood loss. No specimens were submitted. The patient was transferred to the recovery room awake, extubated, in stable condition. The patient did pull out the NG tube in the recovery room, and a trial will be made without NG suction. Reviewed and electronically signed
[2019-06-25] MEDS: ENOXAPARIN SODIUM 40 MG/0.4 ML SYRG SC SCH (20:56)
[2019-06-25] MEDS ORDERED: ASPIRIN 81 MG TABLET.DR PO SCH (21:00)
[2019-06-25] MEDS: METOCLOPRAMIDE HCL 5 MG/ML VIAL IV SCH (21:13)
--- NOTE | 2019-06-25 22:25 | ANES ---
Post Anesthesia Assessment - Vital Signs Vitals: Last Vital Signs Temp 37.3 C 06/25/19 19:55 Pulse 82 06/25/19 21:07 Resp 14 06/25/19 19:55 BP 133/68 06/25/19 21:07 Pulse Ox 94 06/25/19 20:45 Airway Patency: Normal - Mental Status Level Of Consciousness: Drowsy - Pain Level Pain Score: 0 - N/V Assessment Nausea/Vomiting Presence: None Dehydration:: No
--- NOTE | 2019-06-25 22:36 | PN ---
Subjective - Date and Time Seen Date: 06/25/19 Time: 08:00 Subjective Narrative: Patient is currently comfortable laying in bed. NG tube has been removed. Patient has had breakfast, states he was able to tolerate eggs and Thai toast without complication. Vital signs are stable and is been afebrile. Passing gas. Denies belly pain at this time. Objective - Review of Systems Generalized/Overall Review: Denies: Chills, Fever Respiratory: Denies: Cough, Shortness of Breath Cardiac: Denies: Chest Pain, Edema, Palpitations Abdominal: Reports: Abdominal Pain - Mild discomfort, Constipation, Other - Passing gas. Denies: Nausea, Vomiting, Diarrhea Genitourinary Symptoms: Reports: No Symptoms Reported - Vitals Vitals: Last Vital Signs Temp 37.3 C 06/25/19 19:55 Pulse 82 06/25/19 21:07 Resp 14 06/25/19 19:55 BP 133/68 06/25/19 21:07 Pulse Ox 94 06/25/19 20:45 - Abnormal Lab Findings Abnormal Lab Findings: Abnormal Lab Results 06/25/19 06/25/19 Range/Units 06:30 06:30 RBC 4.44 L (4.7-6.0) M/mm3 Hct 40.3 L (42.0-52.0) % Neutrophils % 80.0 H (42-75.0) % Lymphocytes % 7.5 L (20-51) % Monocytes % 11.1 H (0.0-9) % Neutrophils # 8.2 H (1.3-6.0) K/mm3 Lymphocytes # 0.76 L (1.5-3.5) k/mm3 Monocytes # 1.1 H (0.0-1.0) k/mm3 Carbon Dioxide 23.4 L (24-32.6) mmol/L Random Glucose 126 H (70-110) mg/dL - Exam Constitutional: Present: Alert, Oriented x3, Cooperative, Elderly ENT Exam: Present: hearing grossly normal. Absent: nasal congestion, nasal rafat inage Respiratory: Present: lungs clear, normal breath sounds Cardiovascular/Chest: Present: regular rate, rhythm, no murmur Abdomen: Present: soft, nontender, nondistended, no rebound tenderness. Absent: tender, guarding, rigidity Appearance: Present: appropriate appearance, appropriate insight Eye contact: Present: cooperative, good eye contact Thoughts: Present: normal thought pattern, normal mood /affect Cauti Physician Documentation - Urinary Catheter Management Urethral (Boss) Date of Insertion: 06/25/19 Time of Insertion: 17:25 Assessment/Plan Plan Narrative: Patient small bowel traction appears to be resolving. NG tube has been removed by general surgery. Patient's diet to be advanced as tolerated. Patient is comfortable and feels well and has no questions or concerns at this time. His vital signs are stable and is afebrile. No longer having nausea or vomiting, no longer having abdominal pain. Blood pressure stable, restarted meds Restart Parkinson's meds Patient likely to be discharged home tomorrow if he continues to do well throughout the day and overnight. Nurse to call questions or concerns. - Problems/Diagnosis (1) Partial small bowel obstruction Problem: Acute (2) Generalized abdominal pain Problem: Resolved (3) Nausea and vomiting Problem: Acute Qualifiers: Vomiting type: unspecified Vomiting Intractability: non-intractable Qualified Code(s): R11.2 - Nausea with vomiting, unspecified (4) Benign essential hypertension Problem: Chronic (5) Parkinsons Problem: Chronic
[2019-06-26] MEDS: HYDROmorphone HCL 1 MG/ML DISP.SYRIN IV PRN ×2 (00:09→03:45)
[2019-06-26] MEDS: ACETAMINOPHEN 500 MG TABLET PO PRN ×3 (00:12→19:45)
[2019-06-26] MEDS: METOCLOPRAMIDE HCL 5 MG/ML VIAL IV SCH ×5 (02:28→21:48)
[2019-06-26] MEDS: RINGER'S SOLUTION,LACTATED 1,000 ML IV PRN ×2 (05:30→13:20)
[2019-06-26] MEDS ORDERED: CEFOXITIN SODIUM 2 GM in DEXTROSE 5 % IN WATER 100 ML IV PRN ×2 (06:00)
[2019-06-26] MEDS: LEVOTHYROXINE SODIUM 50 MCG TABLET PO SCH (07:59)
[2019-06-26] MEDS: Minocycline Hcl [Minocin] 100 MG PO SCH (07:59)
[2019-06-26] MEDS: ONDANSETRON 8 MG TAB.RAPDIS PO SCH (07:59)
[2019-06-26] MEDS: ATENOLOL 50 MG TABLET PO SCH ×2 (08:00→21:47)
[2019-06-26] MEDS ORDERED: HYDROcodone/ACETAMINOPHEN 1 EACH TABLET PO PRN (08:12)
[2019-06-26] MEDS: HYDROcodone/ACETAMINOPHEN 1 EACH TABLET PO PRN ×2 (08:32→21:45)
[2019-06-26] MEDS ORDERED: FINASTERIDE 5 MG TABLET PO SCH (09:00)
[2019-06-26] MEDS ORDERED: DULoxetine HCL 30 MG CAPSULE.SA PO SCH (09:00)
--- NOTE | 2019-06-26 09:28 | PN ---
Subjective - Date and Time Seen Date: 06/26/19 Time: 09:00 Subjective Narrative: He was initially admitted with a small bowel obstruction that decompressed with nasogastric suction. Although he tolerated clear liquids, when his diet was advanced he redeveloped obstructive pattern. He was taken to the operating room for exploratory laparotomy with lysis of adhesions in the terminal ileum. Objective Objective Narrative: POD#1 Exploratory laparotomy with lysis of adhesions He was somewhat somnolent last night, and required supplemental oxygen briefly. However this morning he is alert with normal vital signs. He is not nauseated. He has not passed gas He has some incisional discomfort when he moves or coughs but otherwise appears comfortable - Review of Systems EENTM: Reports: Other - Somewhat hoarse Respiratory: Reports: Cough. Denies: Shortness of Breath Cardiac: Denies: Chest Pain Abdominal: Denies: Nausea, Vomiting Genitourinary Symptoms: Reports: No Symptoms Reported Musculoskeletal Complaints: Reports: No Symptoms Reported Neurological: Reports: No Symptoms Reported Skin: Reports: No Symptoms Reported - Vitals Vitals: Last Vital Signs Temp 37.4 C 06/26/19 02:00 Pulse 80 06/26/19 08:00 Resp 16 06/26/19 07:49 BP 119/69 06/26/19 08:00 Pulse Ox 92 L 06/26/19 08:39 - Exam Constitutional: Present: Alert, Oriented x3, Cooperative, Well nourished, No distress ENT Exam: Present: normal ENT inspection, muffled/hoarse voice - Hoarse Neck: Present: normal inspection Respiratory: Present: no respiratory distress Cardiovascular/Chest: Present: regular rate, rhythm Abdomen: Present: soft, other - Denies pain or tenderness except at incision /Rectal: Present: Exam deferred Extremity: Present: normal range of motion, normal inspection, no calf tenderness Skin Exam: Present: normal color Neurologic: Present: 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 Encourage ambulation. P.o. pain medication. Boss catheter will be removed per protocol - Problems/Diagnosis (1) Partial small bowel obstruction Problem: Acute
[2019-06-26] MEDS: AMANTADINE HCL 100 MG CAPSULE PO SCH ×2 (11:17→21:46)
--- NOTE | 2019-06-26 16:44 | PN ---
Subjective - Date and Time Seen Date: 06/26/19 Time: 16:39 Subjective Narrative: Postop day 1patient will back to the OR last night after feeling advancement diet. No complications with the surgery and patient currently feeling well today. Pain is tolerable. Patient has not passed gas as of yet but states his pain is much improved. He denies nausea or vomiting, he denies severe abdominal pain. His vital signs are stable and he is been afebrile. Patient is 1 restart his home medicines. Objective - Review of Systems Generalized/Overall Review: Denies: Weakness, Chills, Fever EENTM: Reports: No Symptoms Reported Respiratory: Denies: Cough, Shortness of Breath Cardiac: Denies: Chest Pain, Edema Abdominal: Reports: Abdominal Pain. Denies: Nausea, Vomiting Genitourinary Symptoms: Reports: No Symptoms Reported Musculoskeletal Complaints: Reports: No Symptoms Reported Neurological: Reports: No Symptoms Reported Skin: Reports: No Symptoms Reported - Vitals Vitals: Last Vital Signs Temp 37.1 C 06/26/19 14:46 Pulse 99 06/26/19 14:46 Resp 16 06/26/19 14:46 BP 124/53 06/26/19 14:46 Pulse Ox 97 06/26/19 14:46 - Exam Constitutional: Present: Alert, Oriented x3, Cooperative, Elderly ENT Exam: Present: hearing grossly normal Neck: Present: non-tender, supple Respiratory: Present: lungs clear, normal breath sounds Cardiovascular/Chest: Present: regular rate, rhythm, no murmur Abdomen: Present: soft, tender, hypoactive Appearance: Present: appropriate appearance, appropriate insight Eye contact: Present: cooperative, good eye contact Thoughts: Present: normal thought pattern, normal mood /affect Cauti Physician Documentation - Urinary Catheter Management Urethral (Boss) Date of Insertion: 06/25/19 Time of Insertion: 17:25 Date of Removal: 06/26/19 Time of Removal: 11:00 Assessment/Plan Plan Narrative: Postop day 1 following correction of small bowel obstruction. Surgery performed by Dr. Cooper. Patient feels much better today than he did last night. Pain is well controlled with pain medications. Patient denies nausea or vomiting. Patient's vital signs been stable he is afebrile. Blood pressure well controlled Chronic medications restarted Patient clinically improving, nurse will call questions or concerns. - Problems/Diagnosis (1) Partial small bowel obstruction Problem: Acute (2) Generalized abdominal pain Problem: Resolved (3) Nausea and vomiting Problem: Acute Qualifiers: Vomiting type: unspecified Vomiting Intractability: non-intractable Qualified Code(s): R11.2 - Nausea with vomiting, unspecified (4) Benign essential hypertension Problem: Chronic (5) Parkinsons Problem: Chronic
[2019-06-26] MEDS: ENOXAPARIN SODIUM 40 MG/0.4 ML SYRG SC SCH (17:33)
[2019-06-26] MEDS: PANTOPRAZOLE SODIUM 40 MG in NORMAL SALINE 100 ML IV SCH (17:34)
[2019-06-27] MEDS: RINGER'S SOLUTION,LACTATED 1,000 ML IV PRN ×2 (00:20→10:25)
[2019-06-27] MEDS: METOCLOPRAMIDE HCL 5 MG/ML VIAL IV SCH ×4 (02:42→20:47)
[2019-06-27 07:12] LABS: Hematocrit 38.5 % (42.0-52.0); Hemoglobin 12.2 gm/dL (13.5-18.0); Mean Corpuscular Hgb Conc 31.7 g/dl (32-36); Mean Platelet Volume 11.5 fl (8-11.3); Neutrophil # 9.6 K/mm3 (1.3-6.0); Neutrophil % 84.3 % (42-75.0); Platelet Count 158 K/mm3 (150-450); Red Blood Count 3.93 M/mm3 (4.7-6.0); Red Cell Distribution Width 13.2 % (11.5-14.0); White Blood Count 11.3 K/mm3 (4.0-10.5)
[2019-06-27 07:24] LABS: Anion Gap 16.7 mmol/L (6.8-13.8); BUN/Creatinine Ratio 12.7 (9.0-21.6); Calcium * 8.3 mg/dL (7.9-10.9); Carbon Dioxide 23.1 mmol/L (24-32.6); Estimated Creat Clear 72.9; Potassium 3.8 mmol/L (3.4-4.6)
[2019-06-27] MEDS: ATENOLOL 50 MG TABLET PO SCH ×2 (08:02→20:48)
[2019-06-27] MEDS: AMANTADINE HCL 100 MG CAPSULE PO SCH ×2 (08:02→20:48)
[2019-06-27] MEDS: LEVOTHYROXINE SODIUM 50 MCG TABLET PO SCH (08:02)
[2019-06-27] MEDS: Minocycline Hcl [Minocin] 100 MG PO SCH (08:03)
--- NOTE | 2019-06-27 08:25 | PN ---
Subjective - Date and Time Seen Date: 06/27/19 Time: 08:22 Objective Objective Narrative: POD #2 exploratory laparotomy with lysis of adhesions He states he continues to feel steadily better. Still sore when he moves, but otherwise comfortable. [place] like his bowels might move but they did not. No nausea or vomiting - Review of Systems Generalized/Overall Review: Denies: Chills, Fever EENTM: Reports: No Symptoms Reported Respiratory: Reports: No Symptoms Reported. Denies: Shortness of Breath Cardiac: Denies: Chest Pain Abdominal: Reports: Other - Incisional discomfort only Genitourinary Symptoms: Reports: No Symptoms Reported, Other - Has not voided yet today Musculoskeletal Complaints: Reports: No Symptoms Reported Neurological: Reports: No Symptoms Reported Skin: Reports: No Symptoms Reported - Vitals Vitals: Last Vital Signs Temp 36.5 C 06/27/19 06:55 Pulse 103 H 06/27/19 08:02 Resp 16 06/27/19 06:55 BP 125/79 06/27/19 08:02 Pulse Ox 95 06/27/19 06:55 - Abnormal Lab Findings Abnormal Lab Findings: Abnormal Lab Results 06/27/19 06/27/19 Range/Units 07:00 07:00 WBC 11.3 H (4.0-10.5) K/mm3 RBC 3.93 L (4.7-6.0) M/mm3 Hgb 12.2 L (13.5-18.0) gm/dL Hct 38.5 L (42.0-52.0) % MCHC 31.7 L (32-36) g/dl MPV 11.5 H (8-11.3) fl Immature Gran % (Auto) 0.50 H (0.001-0.429) % Immature Gran # (Auto) 0.06 H (0.000-0.0310) K/mm3 Neutrophils % 84.3 H (42-75.0) % Lymphocytes % 6.3 L (20-51) % Neutrophils # 9.6 H (1.3-6.0) K/mm3 Lymphocytes # 0.71 L (1.5-3.5) k/mm3 Carbon Dioxide 23.1 L (24-32.6) mmol/L Anion Gap 16.7 H (6.8-13.8) mmol/L - Exam Constitutional: Present: Alert, Oriented x3, Cooperative, No distress ENT Exam: Present: normal ENT inspection Neck: Present: normal inspection Respiratory: Present: no respiratory distress Cardiovascular/Chest: Present: regular rate, rhythm Abdomen: Present: other - Still distended and tympanitic but soft. No peritoneal signs. 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 Encourage ambulation. Will continue IV fluids for now ADDENDUM: Has tolerated clear liquids. No BM. Has ambulated. Will decrease IVF's as has voided - Problems/Diagnosis (1) Partial small bowel obstruction Problem: Acute
[2019-06-27] MEDS ORDERED: BISACODYL 5 MG TABLET.DR PO ONE (16:03)
--- NOTE | 2019-06-27 17:12 | PN ---
Subjective - Date and Time Seen Date: 06/27/19 Time: 11:50 Subjective Narrative: laparotomy yesterday with lysis of adhesions. taking clear liquids this morning. one episode of nausea while doing so. no vomiting. abdominal pain is mild to modest. abdomen somewhat distended. no flatus or bm. urinating without problem. and one other person present. Objective - Review of Systems Generalized/Overall Review: Reports: No Symptoms Reported EENTM: Reports: No Symptoms Reported Respiratory: Reports: No Symptoms Reported Cardiac: Reports: No Symptoms Reported Abdominal: Reports: Nausea, Abdominal Pain Genitourinary Symptoms: Reports: No Symptoms Reported Musculoskeletal Complaints: Reports: No Symptoms Reported Neurological: Reports: No Symptoms Reported Skin: Reports: No Symptoms Reported Endocrine: Reports: No Symptoms Reported Misc: All systems neg except as marked - Vitals Vitals: Last Vital Signs Temp 36.4 C 06/27/19 14:00 Pulse 96 06/27/19 14:00 Resp 18 06/27/19 14:00 BP 122/69 06/27/19 14:00 Pulse Ox 97 06/27/19 14:00 - Abnormal Lab Findings Abnormal Lab Findings: Abnormal Lab Results 06/27/19 06/27/19 Range/Units 07:00 07:00 WBC 11.3 H (4.0-10.5) K/mm3 RBC 3.93 L (4.7-6.0) M/mm3 Hgb 12.2 L (13.5-18.0) gm/dL Hct 38.5 L (42.0-52.0) % MCHC 31.7 L (32-36) g/dl MPV 11.5 H (8-11.3) fl Immature Gran % (Auto) 0.50 H (0.001-0.429) % Immature Gran # (Auto) 0.06 H (0.000-0.0310) K/mm3 Neutrophils % 84.3 H (42-75.0) % Lymphocytes % 6.3 L (20-51) % Neutrophils # 9.6 H (1.3-6.0) K/mm3 Lymphocytes # 0.71 L (1.5-3.5) k/mm3 Carbon Dioxide 23.1 L (24-32.6) mmol/L Anion Gap 16.7 H (6.8-13.8) mmol/L Comments:: slightly elevated wbc count, slightly low hgb, slightly low CO2, slightly high anion gap. the plan is to recheck tomorrow. - Exam Constitutional: Present: Alert, Oriented x3, Cooperative, Well developed, No distress ENT Exam: Present: normal ENT inspection, hearing grossly normal Neck: Present: normal inspection. Absent: lymphadenopathy (R), lymphadenopathy (L), thyromegaly Breasts: Present: Other - male Respiratory: Present: lungs clear, no respiratory distress Cardiovascular/Chest: Present: regular rate, rhythm, no edema, no gallop, no JVD, no murmur Abdomen: Present: no hepatospenomegaly, no masses, tender - diffusely, more so at incision site, distended - slight, but more than normal, no bowel sounds /Rectal: Present: Exam deferred Extremity: Present: normal inspection, normal capillary refill Skin Exam: Present: normal color, warm/dry, no cyanosis Lymphatic: Present: no adenopathy Neurologic: Absent: abnormal gait, motor weakness Appearance: Present: appropriate appearance, appropriate insight, neat Eye contact: Present: cooperative, good eye contact, normal speech Thoughts: Present: normal thought pattern Cauti Physician Documentation - Urinary Catheter Management Urethral (Boss) Date of Insertion: 06/25/19 Time of Insertion: 17:25 Date of Removal: 06/26/19 Time of Removal: 11:00 Assessment/Plan - Problems/Diagnosis (1) Abdominal adhesions Problem: Resolved (2) Nausea and vomiting Problem: Acute Qualifiers: Vomiting type: unspecified Vomiting Intractability: non-intractable Qualified Code(s): R11.2 - Nausea with vomiting, unspecified (3) Generalized abdominal pain Problem: Resolved (4) Partial small bowel obstruction Problem: Acute (5) Tobacco abuse Problem: Chronic (6) Parkinsons Problem: Chronic (7) GERD (gastroesophageal reflux disease) Problem: Chronic Qualifiers: Esophagitis presence: esophagitis presence not specified Qualified Code(s): K21.9 - Gastro-esophageal reflux disease without esophagitis (8) Benign essential hypertension Problem: Chronic
--- NOTE | 2019-06-27 17:13 | PN ---
Progess Note - Interim Date: 06/27/19 Time: 11:50 Narrative: 06/27/19 17:13 plan is to continue conservative management. walking is encouraged.
[2019-06-27] MEDS: ENOXAPARIN SODIUM 40 MG/0.4 ML SYRG SC SCH (17:19)
[2019-06-27] MEDS: PANTOPRAZOLE SODIUM 40 MG in NORMAL SALINE 100 ML IV SCH (17:19)
[2019-06-27] MEDS: ONDANSETRON 8 MG TAB.RAPDIS PO PRN (18:06)
[2019-06-28] MEDS: METOCLOPRAMIDE HCL 5 MG/ML VIAL IV SCH ×4 (02:17→20:05)
[2019-06-28] MEDS: ONDANSETRON 8 MG TAB.RAPDIS PO PRN (02:22)
[2019-06-28] MEDS: RINGER'S SOLUTION,LACTATED 1,000 ML IV PRN ×3 (04:07→18:41)
[2019-06-28 06:24] LABS: Anion Gap 15.8 mmol/L (6.8-13.8); BUN/Creatinine Ratio 14.4 (9.0-21.6); Calcium * 8.7 mg/dL (7.9-10.9); Potassium 3.8 mmol/L (3.4-4.6)
[2019-06-28 06:26] LABS: Hematocrit 36.8 % (42.0-52.0); Hemoglobin 12.2 gm/dL (13.5-18.0); Mean Cell Volume 92.7 fl (78-100); Mean Corpuscular Hemoglobin 30.7 pg (27-31); Mean Corpuscular Hgb Conc 33.2 g/dl (32-36); Mean Platelet Volume 10.9 fl (8-11.3); Neutrophil # 15.4 K/mm3 (1.3-6.0); Neutrophil % 86.9 % (42-75.0); Platelet Count 265 K/mm3 (150-450); Red Blood Count 3.97 M/mm3 (4.7-6.0); White Blood Count 17.7 K/mm3 (4.0-10.5)
[2019-06-28] MEDS: LEVOTHYROXINE SODIUM 50 MCG TABLET PO SCH (06:49)
[2019-06-28] MEDS: Minocycline Hcl [Minocin] 100 MG PO SCH (08:31)
[2019-06-28] MEDS: AMANTADINE HCL 100 MG CAPSULE PO SCH ×4 (09:32→21:09)
[2019-06-28] MEDS: ATENOLOL 50 MG TABLET PO SCH ×4 (09:32→21:09)
[2019-06-28] MEDS: ACETAMINOPHEN 500 MG TABLET PO PRN (11:01)
[2019-06-28] MEDS: HYDROmorphone HCL 1 MG/ML DISP.SYRIN IV PRN ×2 (11:17→18:57)
[2019-06-28] MEDS ORDERED: PIPERACILLIN SODIUM/TAZOBACTAM 2.25 GM VIAL IV SCH (11:45)
--- NOTE | 2019-06-28 11:53 | PN ---
Subjective - Date and Time Seen Date: 06/28/19 Time: 11:49 Objective Objective Narrative: POD#3 exploratory laparotomy for small bowel obstruction. He pulled out his NG after surgery, however had not had N/V and tolerated a trial of clear liquids. Early last evening he had an episode of small volume emesis, so was made NPO. Overnight he apparently had multiple additional episodes of vomiting. This was not reported until this morning. Nasogastric tube was placed. He vomited. He has become more short of breath requiring supplemental oxygen. His pulse has increased to the 150s. - Review of Systems EENTM: Reports: Other - Discomfort from the nasogastric tube Respiratory: Reports: Cough, Shortness of Breath Cardiac: Denies: Chest Pain Abdominal: Reports: Nausea, Vomiting, Other - He had a large NG output Genitourinary Symptoms: Reports: No Symptoms Reported Musculoskeletal Complaints: Reports: No Symptoms Reported Neurological: Reports: Tremors Skin: Reports: Other - Diaphoretic - Vitals Vitals: Last Vital Signs Temp 38.3 C H 06/28/19 10:52 Pulse 130 H 06/28/19 10:52 Resp 24 H 06/28/19 10:52 BP 155/92 H 06/28/19 10:52 Pulse Ox 92 L 06/28/19 11:32 - Abnormal Lab Findings Abnormal Lab Findings: Abnormal Lab Results 06/28/19 06/28/19 Range/Units 06:15 06:15 WBC 17.7 H D (4.0-10.5) K/mm3 RBC 3.97 L (4.7-6.0) M/mm3 Hgb 12.2 L (13.5-18.0) gm/dL Hct 36.8 L (42.0-52.0) % Immature Gran % (Auto) 0.70 H (0.001-0.429) % Immature Gran # (Auto) 0.12 H (0.000-0.0310) K/mm3 Neutrophils % 86.9 H (42-75.0) % Lymphocytes % 3.9 L (20-51) % Neutrophils # 15.4 H (1.3-6.0) K/mm3 Lymphocytes # 0.69 L (1.5-3.5) k/mm3 Monocytes # 1.4 H (0.0-1.0) k/mm3 Carbon Dioxide 23.0 L (24-32.6) mmol/L Anion Gap 15.8 H (6.8-13.8) mmol/L Random Glucose 145 H D (70-110) mg/dL Chest x-ray after NG placement showed good position. Chest x-ray after shortness of breath reported reveals bilateral infiltrates EKG shows new onset atrial fibrillation with rapid ventricular response - Exam Exam Narrative: He is alert and oriented. There is a tremor. He appears short of breath but cannot complete a sentence. Dark green material in the NG Constitutional: Present: Alert, Oriented x3, Moderate distress ENT Exam: Present: normal ENT inspection, other - NG tube Neck: Present: normal inspection Respiratory: Present: rhonchi Cardiovascular/Chest: Present: tachycardia, irregularly irregular Abdomen: Present: soft, other - Distended but soft. Very tympanitic. There are bowel sounds present /Rectal: Present: Exam deferred Extremity: Present: normal range of motion, no calf tenderness Skin Exam: Present: diaphoresis, pallor Neurologic: Present: no motor/sensory deficits Appearance: Present: no memory impairment Eye contact: Present: good eye contact Thoughts: Present: normal thought pattern Cauti Physician Documentation - Urinary Catheter Management Urethral (Boss) Date of Insertion: 06/25/19 Time of Insertion: 17:25 Date of Removal: 06/26/19 Time of Removal: 11:00 Assessment/Plan Plan Narrative: Will need to leave the nasogastric tube. Discussed with Dr. Elizabeth Brown regarding antibiotics and possible respiratory assistance. Dr. Grant will review the EKG, defer management of the new onset A. fib to him. - Problems/Diagnosis (1) Partial small bowel obstruction Problem: Acute
[2019-06-28] MEDS ORDERED: DILTIAZEM HCL 125 MG in DEXTROSE 5 % IN WATER 100 ML IV PRN ×2 (11:57)
[2019-06-28] MEDS ORDERED: ENOXAPARIN SODIUM 80 MG/0.8 ML DISP.SYRIN SC SCH (12:00)
[2019-06-28] MEDS ORDERED: ENOXAPARIN SODIUM 60 MG, ENOXAPARIN SODIUM 30 MG SC SCH ×2 (12:30)
--- NOTE | 2019-06-28 12:42 | PN ---
Subjective - Date and Time Seen Date: 06/28/19 Time: 12:00 Subjective Narrative: laparotomy two days ago with lysis of adhesions. present at the time of this evaluation. vomited through the night. now with aspiration pneumonitis and the NG tube is back in place. we will start IV antibiotics. He was also hypoxemic, with O2 sats in the 80s even with mask and 100% O2. ABGs show a pO2 of 46. we will switch to bipap with O2. He is now also in a fib with rvr. I reviewed the EKG myself. He has not had a fib in the past. we will control rate with diltiazem and increase the dose of lovenox. I suspect he is in atrial fibrillation because of the stress of his current illness. He is restless, and yesterday pulled his NG tube out for this reason. so that we can watch him more closely, we will transfer him to the SCU. Objective - Review of Systems Generalized/Overall Review: Reports: Weakness EENTM: Reports: No Symptoms Reported Respiratory: Reports: Cough, Shortness of Breath Cardiac: Reports: Other - fast heart rate. Denies: Chest Pain Abdominal: Reports: Abdominal Pain - postsurgical, Other - NG in place Genitourinary Symptoms: Reports: No Symptoms Reported Musculoskeletal Complaints: Reports: No Symptoms Reported Neurological: Reports: Other - restless Skin: Reports: No Symptoms Reported Endocrine: Reports: No Symptoms Reported Misc: All systems neg except as marked - Vitals Vitals: Last Vital Signs Temp 38.3 C H 06/28/19 10:52 Pulse 130 H 06/28/19 10:52 Resp 24 H 06/28/19 10:52 BP 155/92 H 06/28/19 10:52 Pulse Ox 92 L 06/28/19 11:32 - Abnormal Lab Findings Abnormal Lab Findings: Abnormal Lab Results 06/28/19 06/28/19 Range/Units 06:15 06:15 WBC 17.7 H D (4.0-10.5) K/mm3 RBC 3.97 L (4.7-6.0) M/mm3 Hgb 12.2 L (13.5-18.0) gm/dL Hct 36.8 L (42.0-52.0) % Immature Gran % (Auto) 0.70 H (0.001-0.429) % Immature Gran # (Auto) 0.12 H (0.000-0.0310) K/mm3 Neutrophils % 86.9 H (42-75.0) % Lymphocytes % 3.9 L (20-51) % Neutrophils # 15.4 H (1.3-6.0) K/mm3 Lymphocytes # 0.69 L (1.5-3.5) k/mm3 Monocytes # 1.4 H (0.0-1.0) k/mm3 Carbon Dioxide 23.0 L (24-32.6) mmol/L Anion Gap 15.8 H (6.8-13.8) mmol/L Random Glucose 145 H D (70-110) mg/dL elevated wbc count due to aspiration. - EKG/Xray Findings EKG: atrial fibrillation EKG read: Interp. by me XRAY: chest Interpretation: Reviewed by me - Exam Constitutional: Present: Alert, Cooperative, Well developed, Well nourished, No distress - restless ENT Exam: Present: normal ENT inspection, hearing grossly normal Neck: Present: normal inspection. Absent: lymphadenopathy (R), lymphadenopathy (L), thyromegaly Respiratory: Present: rhonchi, other - work of breathing somewhat increased. Absent: no respiratory distress Cardiovascular/Chest: Present: no edema, no gallop, no JVD, no murmur, irregularly irregular Abdomen: Present: tender - diffusely consistent with surgery, no bowel sounds Extremity: Present: normal inspection, no pedal edema, normal capillary refill Skin Exam: Present: normal color, warm/dry, no cyanosis Lymphatic: Present: no adenopathy Neurologic: Present: alert - oriented to all but time Appearance: Present: appropriate appearance, neat. Absent: appropriate insight Eye contact: Present: cooperative - but restless, good eye contact, normal speech Thoughts: Present: normal thought pattern Cauti Physician Documentation - Urinary Catheter Management Urethral (Boss) Date of Insertion: 06/25/19 Time of Insertion: 17:25 Date of Removal: 06/26/19 Time of Removal: 11:00 Assessment/Plan - Problems/Diagnosis (1) Aspiration pneumonia Problem: Acute Qualifiers: Aspiration pneumonia type: due to vomit Laterality: bilateral Lung location: lower lobe of lung Qualified Code(s): J69.0 - Pneumonitis due to inhalation of food and vomit Narrative: IV zosyn. continue ng tube. (2) Atrial fibrillation with RVR Problem: Acute Narrative: move to scu. diltiazem for rate control. increase lovenox dose. (3) Hypoxemia Problem: Acute Narrative: bipap with O2. monitor ABGs (4) Nausea and vomiting Problem: Acute Qualifiers: Vomiting type: unspecified Vomiting Intractability: non-intractable Qualified Code(s): R11.2 - Nausea with vomiting, unspecified Narrative: maintain ng tube (5) Abdominal adhesions Problem: Resolved (6) Partial small bowel obstruction Problem: Acute (7) Tobacco abuse Problem: Chronic (8) Parkinsons Problem: Chronic (9) GERD (gastroesophageal reflux disease) Problem: Chronic Qualifiers: Esophagitis presence: esophagitis presence not specified Qualified Code(s): K21.9 - Gastro-esophageal reflux disease without esophagitis (10) Benign essential hypertension Problem: Chronic
[2019-06-28] MEDS: PIPERACILLIN SODIUM/TAZOBACTAM 3.375 GM in DEXTROSE 5 % IN WATER 100 ML IV SCH ×4 (13:07→20:05)
--- NOTE | 2019-06-28 16:50 | ANES ---
Anesthesia Procedure Note Procedure Note: ANESTHESIA PROCEDURE NOTE Date of procedure: 06/28/2019. Time of procedure: 1630. Performed by: Oleksandr Pinzon CRNA [employer] Inspector: None . Preprocedure diagnosis: Aspiration pneumonia. Hypoxia. Post procedure diagnosis: Same. Procedure: Arterial line insertion Indications: Blood gas analysis.. Findings: Right radial arterial line started with a 22-gauge Angiocath. EBL: Minimal. Fluids: N/A. Specimen: N/A. Post procedure condition: The patient tolerated the procedure well. No complications were noted. Thank you for this consultation Oleksandr Pinzon CRNA
[2019-06-28] MEDS: ENOXAPARIN SODIUM 60 MG, ENOXAPARIN SODIUM 30 MG SC SCH ×2 (17:40)
[2019-06-28] MEDS: PANTOPRAZOLE SODIUM 40 MG in NORMAL SALINE 100 ML IV SCH (17:42)
[2019-06-29] MEDS: METOCLOPRAMIDE HCL 5 MG/ML VIAL IV SCH ×4 (02:29→20:25)
[2019-06-29] MEDS: RINGER'S SOLUTION,LACTATED 1,000 ML IV PRN ×2 (04:45→15:00)
[2019-06-29] MEDS: PIPERACILLIN SODIUM/TAZOBACTAM 3.375 GM in DEXTROSE 5 % IN WATER 100 ML IV SCH ×6 (04:46→20:30)
[2019-06-29] MEDS ORDERED: ENOXAPARIN SODIUM 30 MG/0.3 ML SYRG SC ONE (05:03)
[2019-06-29] MEDS ORDERED: ENOXAPARIN SODIUM 100 MG/ML SYRG SC ONE (05:04)
[2019-06-29] MEDS: ENOXAPARIN SODIUM 60 MG, ENOXAPARIN SODIUM 30 MG SC SCH ×4 (05:05→16:09)
[2019-06-29 07:08] LABS: Hematocrit 31.3 % (42.0-52.0); Hemoglobin 10.4 gm/dL (13.5-18.0); Mean Cell Volume 94.6 fl (78-100); Mean Corpuscular Hemoglobin 31.4 pg (27-31); Mean Corpuscular Hgb Conc 33.2 g/dl (32-36); Mean Platelet Volume 10.7 fl (8-11.3); Neutrophil % 85.6 % (42-75.0); Platelet Count 212 K/mm3 (150-450); Red Blood Count 3.31 M/mm3 (4.7-6.0); Red Cell Distribution Width 13.2 % (11.5-14.0)
[2019-06-29 07:09] LABS: Anion Gap 12.6 mmol/L (6.8-13.8); BUN/Creatinine Ratio 16.7 (9.0-21.6); Calcium * 8.3 mg/dL (7.9-10.9); Carbon Dioxide 23.9 mmol/L (24-32.6); Estimated Creat Clear 72.9; Potassium 3.5 mmol/L (3.4-4.6)
[2019-06-29] MEDS: ATENOLOL 50 MG TABLET PO SCH ×2 (08:30→20:29)
[2019-06-29] MEDS: AMANTADINE HCL 100 MG CAPSULE PO SCH ×2 (08:31→20:29)
[2019-06-29] MEDS: LEVOTHYROXINE SODIUM 50 MCG TABLET PO SCH (08:31)
[2019-06-29] MEDS: Minocycline Hcl [Minocin] 100 MG PO SCH (09:28)
[2019-06-29] MEDS: DILTIAZEM HCL 30 MG TABLET PO SCH ×2 (10:10→17:26)
[2019-06-29] MEDS: ACETAMINOPHEN 500 MG TABLET PO PRN (10:11)
--- NOTE | 2019-06-29 11:54 | PN ---
Subjective - Date and Time Seen Date: 06/29/19 Time: 11:25 Subjective Narrative: laparotomy three days ago with lysis of adhesions. present at the time of this evaluation. no more vomiting. ng still in place. had a bm today and is passing gas. His O2 sats are above 90, but his most recent pO2 is 64. he is no longer on O2, but refuses bipap because it is uncomfortable. He is using incentive spirometry and cornet. He is now also in a fib with rvr. I reviewed the EKG myself. He has not had a fib in the past. his rate is controlled, he is still in atrial fibrillation, his bp is normal. we will switch diltiazem to oral and continue lovenox. we will not actively try to convert him to sinus rhythm at the present time. we will get him up in the chair now. we will leave order to clamp ng tube up to Dr. Cooper. Objective - Review of Systems Generalized/Overall Review: Reports: Weakness. Denies: Chills, Fever, Diaphoresis EENTM: Reports: Other - chronic dry eyes. Denies: Eye Pain, Blurred Vision Respiratory: Reports: Cough, Shortness of Breath Cardiac: Denies: Chest Pain, Palpitations Abdominal: Reports: Abdominal Pain - minimal. Denies: Nausea, Vomiting, Constipation, Diarrhea, Melena, Bright blood from rectum Genitourinary Symptoms: Denies: Burning, Frequency Musculoskeletal Complaints: Denies: Joint Pain, Back Pain Neurological: Denies: Headache, Anxiety, Depressed Skin: Denies: Lesions, Rash Endocrine: Denies: Increased Hunger, Increased Thirst Misc: All systems neg except as marked - Vitals Vitals: Last Vital Signs Temp 37.4 C 06/29/19 09:00 Pulse 100 06/29/19 10:10 Resp 38 H 06/29/19 09:58 BP 126/79 06/29/19 10:10 Pulse Ox 97 06/29/19 09:58 vitals are stable. - Abnormal Lab Findings Abnormal Lab Findings: Abnormal Lab Results 06/28/19 06/28/19 06/28/19 Range/Units 12:16 14:30 16:47 WBC (4.0-10.5) K/mm3 RBC (4.7-6.0) M/mm3 Hgb (13.5-18.0) gm/dL Hct (42.0-52.0) % MCH (27-31) pg Immature Gran % (Auto) (0.001-0.429) % Immature Gran # (Auto) (0.000-0.0310) K/mm3 Neutrophils % (42-75.0) % Lymphocytes % (20-51) % Neutrophils # (1.3-6.0) K/mm3 Lymphocytes # (1.5-3.5) k/mm3 pCO2 34.5 L 31.5 L (35.0-48.0) mmHg pO2 48.9 L 59.4 L 181.1 H (83.0-108.0) mmHg HCO3 20.2 L (21.0-28.0) mmol/L Total CO2 24.3 H 24.9 H (19.0-24.0) mmol/L Base Excess -3.4 L (-2.0-3.0) mmol/L ABG O2 Sat (Measured) 86.5 L 91.4 L 99.3 H (94.0-98.0) % Carbon Dioxide (24-32.6) mmol/L 06/28/19 06/28/19 06/29/19 Range/Units 18:11 19:15 05:55 WBC (4.0-10.5) K/mm3 RBC (4.7-6.0) M/mm3 Hgb (13.5-18.0) gm/dL Hct (42.0-52.0) % MCH (27-31) pg Immature Gran % (Auto) (0.001-0.429) % Immature Gran # (Auto) (0.000-0.0310) K/mm3 Neutrophils % (42-75.0) % Lymphocytes % (20-51) % Neutrophils # (1.3-6.0) K/mm3 Lymphocytes # (1.5-3.5) k/mm3 pCO2 34.9 L (35.0-48.0) mmHg pO2 67.9 L 79.9 L 72.9 L (83.0-108.0) mmHg HCO3 (21.0-28.0) mmol/L Total CO2 24.9 H (19.0-24.0) mmol/L Base Excess -2.5 L (-2.0-3.0) mmol/L ABG O2 Sat (Measured) (94.0-98.0) % Carbon Dioxide (24-32.6) mmol/L 06/29/19 06/29/19 06/29/19 Range/Units 06:00 06:30 11:05 WBC 14.0 H D (4.0-10.5) K/mm3 RBC 3.31 L (4.7-6.0) M/mm3 Hgb 10.4 L (13.5-18.0) gm/dL Hct 31.3 L (42.0-52.0) % MCH 31.4 H (27-31) pg Immature Gran % (Auto) 0.60 H (0.001-0.429) % Immature Gran # (Auto) 0.09 H (0.000-0.0310) K/mm3 Neutrophils % 85.6 H (42-75.0) % Lymphocytes % 6.1 L (20-51) % Neutrophils # 12.0 H (1.3-6.0) K/mm3 Lymphocytes # 0.85 L (1.5-3.5) k/mm3 pCO2 (35.0-48.0) mmHg pO2 64.1 L (83.0-108.0) mmHg HCO3 (21.0-28.0) mmol/L Total CO2 26.2 H (19.0-24.0) mmol/L Base Excess (-2.0-3.0) mmol/L ABG O2 Sat (Measured) 93.5 L (94.0-98.0) % Carbon Dioxide 23.9 L (24-32.6) mmol/L wbc count decreasing. chemistries stable. will recheck both tomorrow. - Exam Constitutional: Present: Alert, Oriented x3, Cooperative, Well developed, Well nourished, No distress ENT Exam: Present: normal ENT inspection, hearing grossly normal Neck: Present: normal inspection. Absent: lymphadenopathy (R), lymphadenopathy (L), thyromegaly Breasts: Present: Other - male Respiratory: Present: rhonchi - less than yesterday, other - tachypneic and increased work of breathing Cardiovascular/Chest: Present: irregularly irregular. Absent: no JVD, no murmur, edema Abdomen: Present: soft, nondistended, no hepatospenomegaly, no masses, tender - diffuse and minimal, hypoactive /Rectal: Present: Exam deferred Extremity: Present: non-tender, normal inspection Skin Exam: Present: normal color, warm/dry, no cyanosis Lymphatic: Present: no adenopathy Neurologic: Present: no motor/sensory deficits Appearance: Present: appropriate appearance, appropriate insight, neat Eye contact: Present: cooperative, good eye contact, normal speech Thoughts: Present: normal thought pattern Cauti Physician Documentation - Urinary Catheter Management Urethral (Boss) Date of Insertion: 06/25/19 Time of Insertion: 17:25 Date of Removal: 06/26/19 Time of Removal: 11:00 Assessment/Plan - Problems/Diagnosis (1) Aspiration pneumonia Problem: Acute Qualifiers: Aspiration pneumonia type: due to vomit Laterality: bilateral Lung location: lower lobe of lung Qualified Code(s): J69.0 - Pneumonitis due to inhalation of food and vomit Narrative: clinically improving. will repeat a cxr tomorrow. (2) Respiratory failure with hypoxia and hypercapnia Problem: Acute Qualifiers: Chronicity: acute Qualified Code(s): J96.01 - Acute respiratory failure with hypoxia; J96.02 - Acute respiratory failure with hypercapnia Narrative: we will continue to monitor pulse oximetry. we will check blood gases tomorrow and as needed. (3) Atrial fibrillation with RVR Problem: Acute (4) Nausea and vomiting Problem: Acute Qualifiers: Vomiting type: unspecified Vomiting Intractability: non-intractable Qualified Code(s): R11.2 - Nausea with vomiting, unspecified (5) Abdominal adhesions Problem: Resolved (6) Partial small bowel obstruction Problem: Acute Narrative: had a bowel movement this morning. hypoactive but present bowel sounds. (7) Tobacco abuse Problem: Chronic (8) Parkinsons Problem: Chronic (9) GERD (gastroesophageal reflux disease) Problem: Chronic Qualifiers: Esophagitis presence: esophagitis presence not specified Qualified Code(s): K21.9 - Gastro-esophageal reflux disease without esophagitis (10) Benign essential hypertension Problem: Chronic
[2019-06-29] MEDS ORDERED: DILTIAZEM HCL 30 MG TABLET PO SCH (13:00)
[2019-06-29] MEDS: PANTOPRAZOLE SODIUM 40 MG in NORMAL SALINE 100 ML IV SCH (17:23)
[2019-06-29] MEDS ORDERED: BISACODYL 5 MG TABLET.DR PO ONE (17:38)
--- NOTE | 2019-06-29 17:40 | PN ---
Subjective - Date and Time Seen Date: 06/29/19 Time: 16:30 - Patient also seen at 7 AM Objective Objective Narrative: POD#4 exploratory laparotomy for relief of small bowel obstruction from adhesions He has improved steadily over the course of today. He passed gas this morning and then had a bowel movement later today. He appears eupneic on room air. There is minimal NG output - Review of Systems Generalized/Overall Review: Denies: Chills, Fever EENTM: Reports: No Symptoms Reported Respiratory: Denies: Cough, Shortness of Breath Cardiac: Denies: Chest Pain Abdominal: Reports: Other - Minimal incisional discomfort, feels less distended. Denies: Abdominal Pain Genitourinary Symptoms: Reports: No Symptoms Reported, Other - He has voided Musculoskeletal Complaints: Reports: No Symptoms Reported Neurological: Reports: No Symptoms Reported, Other - No tremor Skin: Reports: No Symptoms Reported - Vitals Vitals: Last Vital Signs Temp 36.7 C 06/29/19 14:00 Pulse 110 H 06/29/19 17:26 Resp 23 H 06/29/19 14:00 BP 133/76 06/29/19 17:26 Pulse Ox 99 06/29/19 14:00 - Abnormal Lab Findings Abnormal Lab Findings: Abnormal Lab Results 06/28/19 06/28/19 06/29/19 Range/Units 18:11 19:15 05:55 WBC (4.0-10.5) K/mm3 RBC (4.7-6.0) M/mm3 Hgb (13.5-18.0) gm/dL Hct (42.0-52.0) % MCH (27-31) pg Immature Gran % (Auto) (0.001-0.429) % Immature Gran # (Auto) (0.000-0.0310) K/mm3 Neutrophils % (42-75.0) % Lymphocytes % (20-51) % Neutrophils # (1.3-6.0) K/mm3 Lymphocytes # (1.5-3.5) k/mm3 pCO2 34.9 L (35.0-48.0) mmHg pO2 67.9 L 79.9 L 72.9 L (83.0-108.0) mmHg Total CO2 24.9 H (19.0-24.0) mmol/L Base Excess -2.5 L (-2.0-3.0) mmol/L ABG O2 Sat (Measured) (94.0-98.0) % Carbon Dioxide (24-32.6) mmol/L 06/29/19 06/29/19 06/29/19 Range/Units 06:00 06:30 11:05 WBC 14.0 H D (4.0-10.5) K/mm3 RBC 3.31 L (4.7-6.0) M/mm3 Hgb 10.4 L (13.5-18.0) gm/dL Hct 31.3 L (42.0-52.0) % MCH 31.4 H (27-31) pg Immature Gran % (Auto) 0.60 H (0.001-0.429) % Immature Gran # (Auto) 0.09 H (0.000-0.0310) K/mm3 Neutrophils % 85.6 H (42-75.0) % Lymphocytes % 6.1 L (20-51) % Neutrophils # 12.0 H (1.3-6.0) K/mm3 Lymphocytes # 0.85 L (1.5-3.5) k/mm3 pCO2 (35.0-48.0) mmHg pO2 64.1 L (83.0-108.0) mmHg Total CO2 26.2 H (19.0-24.0) mmol/L Base Excess (-2.0-3.0) mmol/L ABG O2 Sat (Measured) 93.5 L (94.0-98.0) % Carbon Dioxide 23.9 L (24-32.6) mmol/L - Exam Constitutional: Present: Alert, Oriented x3, Cooperative, No distress ENT Exam: Present: normal ENT inspection, other - NG in good position Neck: Present: normal inspection Respiratory: Present: no respiratory distress Cardiovascular/Chest: Present: irregularly irregular Abdomen: Present: other - Still slightly distended but much softer. 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 We will stressed use of incentive spirometry. He may have ice chips or p.o. meds, however would leave the NG tube at least overnight Encourage out of bed as able - Problems/Diagnosis (1) Partial small bowel obstruction Problem: Acute
[2019-06-30] MEDS: RINGER'S SOLUTION,LACTATED 1,000 ML IV PRN (00:09)
[2019-06-30] MEDS: DILTIAZEM HCL 30 MG TABLET PO SCH (02:37)
[2019-06-30] MEDS: METOCLOPRAMIDE HCL 5 MG/ML VIAL IV SCH ×4 (02:38→21:11)
[2019-06-30] MEDS: ENOXAPARIN SODIUM 60 MG, ENOXAPARIN SODIUM 30 MG SC SCH ×4 (04:27→18:10)
[2019-06-30] MEDS: PIPERACILLIN SODIUM/TAZOBACTAM 3.375 GM in DEXTROSE 5 % IN WATER 100 ML IV SCH ×6 (04:31→21:13)
--- NOTE | 2019-06-30 06:50 | PN ---
Subjective - Date and Time Seen Date: 06/30/19 Time: 06:20 Subjective Narrative: laparotomy four days ago with lysis of adhesions. not present at the time of this evaluation. no more vomiting. ng still is out. continues to have bm's. no nausea. no abdominal distension. pO2 this morning is still low but O2 sats in the low 90's on room air. he may have previously unknown chronic hypoxemia. He is using incentive spirometry and cornet. He is in a fib with controlled rate. His bp is normal. we will switch oral diltiazem and lovenox. we will not actively try to convert him to sinus rhythm at the present time. he is now up and moving around on his own. he reports feeling very well. Objective - Review of Systems Generalized/Overall Review: Reports: No Symptoms Reported EENTM: Reports: No Symptoms Reported Respiratory: Reports: Cough - minimal, nonproductive. Denies: Shortness of Breath Cardiac: Reports: No Symptoms Reported Abdominal: Reports: Abdominal Pain - minimal. Denies: Nausea, Constipation, Diarrhea, Melena, Bright blood from rectum Genitourinary Symptoms: Reports: No Symptoms Reported Neurological: Reports: No Symptoms Reported Skin: Reports: No Symptoms Reported Endocrine: Reports: No Symptoms Reported Misc: All systems neg except as marked - Vitals Vitals: Last Vital Signs Temp 37.3 C 06/30/19 02:00 Pulse 98 06/30/19 02:37 Resp 18 06/30/19 02:00 BP 143/89 06/30/19 02:37 Pulse Ox 98 06/30/19 02:00 vitals are stable. still in a fib. - Abnormal Lab Findings Abnormal Lab Findings: Abnormal Lab Results 06/29/19 06/29/19 06/29/19 Range/Units 06:00 06:30 11:05 WBC 14.0 H D (4.0-10.5) K/mm3 RBC 3.31 L (4.7-6.0) M/mm3 Hgb 10.4 L (13.5-18.0) gm/dL Hct 31.3 L (42.0-52.0) % MCH 31.4 H (27-31) pg Immature Gran % (Auto) 0.60 H (0.001-0.429) % Immature Gran # (Auto) 0.09 H (0.000-0.0310) K/mm3 Neutrophils % 85.6 H (42-75.0) % Lymphocytes % 6.1 L (20-51) % Neutrophils # 12.0 H (1.3-6.0) K/mm3 Lymphocytes # 0.85 L (1.5-3.5) k/mm3 pCO2 (35.0-48.0) mmHg pO2 64.1 L (83.0-108.0) mmHg Total CO2 26.2 H (19.0-24.0) mmol/L ABG O2 Sat (Measured) 93.5 L (94.0-98.0) % Carbon Dioxide 23.9 L (24-32.6) mmol/L /09/13 Range/Units 06:15 WBC (4.0-10.5) K/mm3 RBC (4.7-6.0) M/mm3 Hgb (13.5-18.0) gm/dL Hct (42.0-52.0) % MCH (27-31) pg Immature Gran % (Auto) (0.001-0.429) % Immature Gran # (Auto) (0.000-0.0310) K/mm3 Neutrophils % (42-75.0) % Lymphocytes % (20-51) % Neutrophils # (1.3-6.0) K/mm3 Lymphocytes # (1.5-3.5) k/mm3 pCO2 34.0 L (35.0-48.0) mmHg pO2 56.9 L (83.0-108.0) mmHg Total CO2 24.3 H (19.0-24.0) mmol/L ABG O2 Sat (Measured) 91.2 L (94.0-98.0) % Carbon Dioxide (24-32.6) mmol/L cxr, cbc and cmp still pending. pO2 56.9. O2 sat 91.2. - Exam Constitutional: Present: Alert, Oriented x3, Cooperative, Well developed, Well nourished, No distress ENT Exam: Present: normal ENT inspection, hearing grossly normal Neck: Present: normal inspection. Absent: lymphadenopathy (R), lymphadenopathy (L), thyromegaly Respiratory: Present: lungs clear, no respiratory distress Cardiovascular/Chest: Present: no edema, no JVD, no murmur, irregularly irregular Abdomen: Present: Normal bowel sounds, soft, nondistended, no hepatospenomegaly, no masses, tender - minimally /Rectal: Present: Exam deferred Extremity: Present: non-tender, normal inspection, normal capillary refill Skin Exam: Present: normal color, warm/dry, no cyanosis Lymphatic: Present: no adenopathy Neurologic: Present: no motor/sensory deficits. Absent: motor weakness Appearance: Present: appropriate appearance, appropriate insight, neat, no memory impairment Eye contact: Present: cooperative, good eye contact, normal speech Thoughts: Present: normal thought pattern Cauti Physician Documentation - Urinary Catheter Management Urethral (Boss) Date of Insertion: 06/25/19 Time of Insertion: 17:25 Date of Removal: 06/26/19 Time of Removal: 11:00 Assessment/Plan - Problems/Diagnosis (1) Aspiration pneumonia Problem: Acute Qualifiers: Aspiration pneumonia type: due to vomit Laterality: bilateral Lung location: lower lobe of lung Qualified Code(s): J69.0 - Pneumonitis due to inhalation of food and vomit Narrative: improving. will send home on augmentin when the time comes. (2) Respiratory failure with hypoxia and hypercapnia Problem: Resolved Qualifiers: Chronicity: acute Qualified Code(s): J96.01 - Acute respiratory failure with hypoxia; J96.02 - Acute respiratory failure with hypercapnia Narrative: he may in fact have a chronically low pO2. O2 sats are normal. (3) Atrial fibrillation with RVR Problem: Acute Narrative: rate is controlled. will switch from diltiazem to a higher dose of atenolol to simplify medications and prevent side effects from medication interactions. will stick with rate control for now. (4) Nausea and vomiting Problem: Resolved Qualifiers: Vomiting type: unspecified Vomiting Intractability: non-intractable Qualified Code(s): R11.2 - Nausea with vomiting, unspecified (5) Abdominal adhesions Problem: Resolved (6) Partial small bowel obstruction Problem: Resolved (7) Tobacco abuse Problem: Chronic (8) Parkinsons Problem: Chronic (9) GERD (gastroesophageal reflux disease) Problem: Chronic Qualifiers: Esophagitis presence: esophagitis presence not specified Qualified Code(s): K21.9 - Gastro-esophageal reflux disease without esophagitis (10) Benign essential hypertension Problem: Chronic
[2019-06-30 07:27] LABS: Anion Gap 13.8 mmol/L (6.8-13.8); BUN/Creatinine Ratio 15.6 (9.0-21.6); Calcium * 8.4 mg/dL (7.9-10.9); Carbon Dioxide 25.1 mmol/L (24-32.6); Estimated Creat Clear 68.2; Potassium 2.9 mmol/L (3.4-4.6)
[2019-06-30 07:30] LABS: Hematocrit 32.2 % (42.0-52.0); Hemoglobin 10.5 gm/dL (13.5-18.0); Mean Corpuscular Hgb Conc 32.6 g/dl (32-36); Mean Platelet Volume 11.1 fl (8-11.3); Neutrophil # 8.8 K/mm3 (1.3-6.0); Neutrophil % 81.5 % (42-75.0); Platelet Count 241 K/mm3 (150-450); Red Blood Count 3.39 M/mm3 (4.7-6.0); Red Cell Distribution Width 13.2 % (11.5-14.0); White Blood Count 10.7 K/mm3 (4.0-10.5)
[2019-06-30] MEDS: LEVOTHYROXINE SODIUM 50 MCG TABLET PO SCH (07:42)
[2019-06-30] MEDS: Minocycline Hcl [Minocin] 100 MG PO SCH (08:43)
[2019-06-30] MEDS: AMANTADINE HCL 100 MG CAPSULE PO SCH ×2 (08:44→21:15)
[2019-06-30] MEDS: ATENOLOL 100 MG TABLET PO SCH ×2 (08:46→21:16)
[2019-06-30] MEDS ORDERED: LORazepam 2 MG/ML DISP.SYRIN IV PRN (10:07)
[2019-06-30] MEDS: POTASSIUM CHLORIDE 20 MEQ in NORMAL SALINE 1,000 ML IV SCH ×2 (11:08→22:14)
[2019-06-30] MEDS: DULoxetine HCL 30 MG CAPSULE.SA PO SCH (13:48)
[2019-06-30] MEDS: clonazePAM 0.5 MG TABLET PO SCH ×2 (13:48→21:21)
--- NOTE | 2019-06-30 17:11 | PN ---
Subjective - Date and Time Seen Date: 06/30/19 Time: 17:08 - Second visit Objective Objective Narrative: POD#5 exploratory laparotomy for release of small bowel obstruction He is a little crabby today, however overall appears to be improving steadily. He has been up with assist. He has moved his bowels and is tolerating liquids well. He would like real food - Review of Systems Generalized/Overall Review: Reports: Fatigue. Denies: Chills, Fever EENTM: Reports: No Symptoms Reported Respiratory: Denies: Cough, Shortness of Breath Cardiac: Denies: Chest Pain Abdominal: Reports: Other - Minimal incisional discomfort, has moved his bowels Genitourinary Symptoms: Reports: No Symptoms Reported Musculoskeletal Complaints: Reports: No Symptoms Reported Neurological: Reports: No Symptoms Reported, Other - He had a little agitation earlier today Skin: Reports: No Symptoms Reported - Vitals Vitals: Last Vital Signs Temp 37.0 C 06/30/19 14:25 Pulse 98 06/30/19 14:25 Resp 18 06/30/19 14:25 BP 129/77 06/30/19 14:25 Pulse Ox 97 06/30/19 14:25 - Abnormal Lab Findings Abnormal Lab Findings: Abnormal Lab Results 06/30/19 06/30/19 06/30/19 Range/Units 06:15 06:55 06:55 WBC 10.7 H D (4.0-10.5) K/mm3 RBC 3.39 L (4.7-6.0) M/mm3 Hgb 10.5 L (13.5-18.0) gm/dL Hct 32.2 L (42.0-52.0) % Immature Gran % (Auto) 0.80 H (0.001-0.429) % Immature Gran # (Auto) 0.09 H (0.000-0.0310) K/mm3 Neutrophils % 81.5 H (42-75.0) % Lymphocytes % 8.5 L (20-51) % Neutrophils # 8.8 H (1.3-6.0) K/mm3 Lymphocytes # 0.91 L (1.5-3.5) k/mm3 pCO2 34.0 L (35.0-48.0) mmHg pO2 56.9 L (83.0-108.0) mmHg Total CO2 24.3 H (19.0-24.0) mmol/L ABG O2 Sat (Measured) 91.2 L (94.0-98.0) % Potassium 2.9 L (3.4-4.6) mmol/L - Exam Constitutional: Present: Alert, Oriented x3, Cooperative, Mild distress ENT Exam: Present: normal ENT inspection Neck: Present: normal inspection Respiratory: Present: no respiratory distress Cardiovascular/Chest: Present: irregularly irregular Abdomen: Present: Normal bowel sounds, soft /Rectal: Present: Exam deferred Extremity: Present: no pedal edema, no calf tenderness Skin Exam: Present: normal color Neurologic: Present: community affairs director II-XII nml as tested, normal cerebellar test, no motor/sensory deficits Appearance: Present: appropriate insight, no memory impairment, disheveled Eye contact: Present: cooperative, normal speech Thoughts: Present: normal thought pattern Cauti Physician Documentation - Urinary Catheter Management Urethral (Boss) Date of Insertion: 06/25/19 Time of Insertion: 17:25 Date of Removal: 06/26/19 Time of Removal: 11:00 Assessment/Plan Plan Narrative: Will advance his diet to regular tomorrow. - Problems/Diagnosis (1) Partial small bowel obstruction Problem: Resolved
[2019-06-30] MEDS: POLYVINYL ALCOHOL 150 DROP BTL EACHEYE SCH ×2 (18:10→21:14)
[2019-06-30] MEDS: PANTOPRAZOLE SODIUM 40 MG in NORMAL SALINE 100 ML IV SCH (18:11)
[2019-06-30] MEDS: prednisoLONE ACETATE 50 DROP BTL EACHEYE SCH (21:14)
[2019-07-01] MEDS: METOCLOPRAMIDE HCL 5 MG/ML VIAL IV SCH ×4 (01:58→20:35)
[2019-07-01] MEDS: PIPERACILLIN SODIUM/TAZOBACTAM 3.375 GM in DEXTROSE 5 % IN WATER 100 ML IV SCH ×6 (04:17→20:34)
[2019-07-01] MEDS: ENOXAPARIN SODIUM 60 MG, ENOXAPARIN SODIUM 30 MG SC SCH ×2 (04:17)
--- NOTE | 2019-07-01 06:36 | PN ---
Subjective - Date and Time Seen Date: 07/01/19 Time: 06:05 Subjective Narrative: laparotomy five days ago with lysis of adhesions. present at the time of this evaluation. tolerating clear liquids well. Dr. Cooper has ordered regular diet for this morning. continues to have bm's. no nausea. no abdominal distension.minimal abdominal discomfort. O2 sats normal on room air. He is using incentive spirometry and cornet. He is in a fib with controlled rate. His bp is normal. we will continue beta adria and lovenox. we will not actively try to convert him to sinus rhythm at the present time. he is up and moving around on his own. he reports feeling very well. he had problems with restless and insisting on going home yesterday. his says whenever he is off his Parkinson's meds he has similar problems. IV ativan yesterday seems to help. he had a better night and this morning is almost back to his usual self mentally. Objective - Review of Systems Generalized/Overall Review: Reports: No Symptoms Reported EENTM: Reports: No Symptoms Reported Respiratory: Reports: Cough. Denies: Shortness of Breath, Wheezing Cardiac: Denies: Chest Pain, Edema Abdominal: Reports: Abdominal Pain - minimal. Denies: Nausea, Constipation, Diarrhea, Melena, Bright blood from rectum Genitourinary Symptoms: Reports: No Symptoms Reported Musculoskeletal Complaints: Reports: No Symptoms Reported Neurological: Reports: Other - confused and restless yesterday. improved this morning. Skin: Reports: No Symptoms Reported Endocrine: Reports: No Symptoms Reported Misc: All systems neg except as marked - Vitals Vitals: Last Vital Signs Temp 36.8 C 07/01/19 04:00 Pulse 96 07/01/19 04:00 Resp 16 07/01/19 04:00 BP 124/69 07/01/19 04:00 Pulse Ox 95 07/01/19 04:00 vitals are stable. still in atrial fib but rate is controlled. - Abnormal Lab Findings Abnormal Lab Findings: Abnormal Lab Results 06/30/19 06/30/19 06/30/19 Range/Units 06:15 06:55 06:55 WBC 10.7 H D (4.0-10.5) K/mm3 RBC 3.39 L (4.7-6.0) M/mm3 Hgb 10.5 L (13.5-18.0) gm/dL Hct 32.2 L (42.0-52.0) % Immature Gran % (Auto) 0.80 H (0.001-0.429) % Immature Gran # (Auto) 0.09 H (0.000-0.0310) K/mm3 Neutrophils % 81.5 H (42-75.0) % Lymphocytes % 8.5 L (20-51) % Neutrophils # 8.8 H (1.3-6.0) K/mm3 Lymphocytes # 0.91 L (1.5-3.5) k/mm3 pCO2 34.0 L (35.0-48.0) mmHg pO2 56.9 L (83.0-108.0) mmHg Total CO2 24.3 H (19.0-24.0) mmol/L ABG O2 Sat (Measured) 91.2 L (94.0-98.0) % Potassium 2.9 L (3.4-4.6) mmol/L we will check a potassium level today. blood count has been stable. - Exam Constitutional: Present: Alert, Oriented x3, Cooperative, Well developed, Well nourished, No distress ENT Exam: Present: normal ENT inspection, hearing grossly normal Neck: Present: normal inspection. Absent: lymphadenopathy (R), lymphadenopathy (L), thyromegaly Respiratory: Present: lungs clear, no respiratory distress Cardiovascular/Chest: Present: no edema, no gallop, no JVD, no murmur, irregularly irregular Abdomen: Present: Normal bowel sounds, soft, nondistended, no hepatospenomegaly, no masses, tender - mildly diffusely /Rectal: Present: Exam deferred Extremity: Present: normal inspection, normal capillary refill Skin Exam: Present: normal color, warm/dry, no cyanosis Lymphatic: Present: no adenopathy Neurologic: Present: normal mood/affect. Absent: abnormal gait Appearance: Present: appropriate appearance, neat, impaired insight, impaired recent memory Eye contact: Present: cooperative, good eye contact, normal speech Thoughts: Present: normal thought pattern Cauti Physician Documentation - Urinary Catheter Management Urethral (Boss) Date of Insertion: 06/25/19 Time of Insertion: 17:25 Date of Removal: 06/26/19 Time of Removal: 11:00 Assessment/Plan - Problems/Diagnosis (1) Acute delirium Problem: Resolved Narrative: ALMOST resolved. (2) Atrial fibrillation with controlled ventricular rate Problem: Acute Narrative: will treat with rate control and eliquis. (3) Hypokalemia Problem: Acute Narrative: added potassium to iv fluids yesterday. will check bmp today. (4) Chronic respiratory failure with hypoxia and hypercapnia Problem: Chronic (5) Aspiration pneumonia Problem: Acute Qualifiers: Aspiration pneumonia type: due to vomit Laterality: bilateral Lung location: lower lobe of lung Qualified Code(s): J69.0 - Pneumonitis due to inhalation of food and vomit Narrative: improved. will send home soon on augmentin. lungs clear today. cxr improved yesterday. (6) Respiratory failure with hypoxia and hypercapnia Problem: Resolved Qualifiers: Chronicity: acute Qualified Code(s): J96.01 - Acute respiratory failure with hypoxia; J96.02 - Acute respiratory failure with hypercapnia Narrative: acute respiratory failure resolved. he most likely has chronic hypoxemic hypercarbic respiratory failure as well. (7) Atrial fibrillation with RVR Problem: Resolved Narrative: now has atrial fibrillation with controlled rate. (8) Nausea and vomiting Problem: Resolved Qualifiers: Vomiting type: unspecified Vomiting Intractability: non-intractable Qualified Code(s): R11.2 - Nausea with vomiting, unspecified (9) Partial small bowel obstruction Problem: Resolved Narrative: possibly home tomorrow. (10) Abdominal adhesions Problem: Resolved (11) Tobacco abuse Problem: Chronic (12) Parkinsons Problem: Chronic (13) GERD (gastroesophageal reflux disease) Problem: Chronic Qualifiers: Esophagitis presence: esophagitis presence not specified Qualified Code(s): K21.9 - Gastro-esophageal reflux disease without esophagitis (14) Benign essential hypertension Problem: Chronic
[2019-07-01] MEDS: LEVOTHYROXINE SODIUM 50 MCG TABLET PO SCH (06:42)
[2019-07-01] MEDS: ACETAMINOPHEN 500 MG TABLET PO PRN (06:52)
[2019-07-01 07:06] LABS: Anion Gap 11.9 mmol/L (6.8-13.8); BUN/Creatinine Ratio 9.8 (9.0-21.6); Calcium * 7.9 mg/dL (7.9-10.9); Carbon Dioxide 25.8 mmol/L (24-32.6); Estimated Creat Clear 72.9; Potassium 3.7 mmol/L (3.4-4.6)
[2019-07-01] MEDS: APIXABAN 5 MG TABLET PO SCH ×2 (08:09→20:37)
[2019-07-01] MEDS: POLYVINYL ALCOHOL 150 DROP BTL EACHEYE SCH ×4 (08:10→20:33)
[2019-07-01] MEDS: DULoxetine HCL 30 MG CAPSULE.SA PO SCH (08:10)
[2019-07-01] MEDS: prednisoLONE ACETATE 50 DROP BTL EACHEYE SCH ×2 (08:11→20:38)
[2019-07-01] MEDS: ATENOLOL 100 MG TABLET PO SCH ×2 (08:12→20:38)
[2019-07-01] MEDS: AMANTADINE HCL 100 MG CAPSULE PO SCH ×2 (08:12→20:39)
[2019-07-01] MEDS: clonazePAM 0.5 MG TABLET PO SCH ×2 (08:18→20:43)
[2019-07-01] MEDS: POTASSIUM CHLORIDE 20 MEQ in NORMAL SALINE 1,000 ML IV SCH (08:19)
[2019-07-01] MEDS: Minocycline Hcl [Minocin] 100 MG PO SCH (08:31)
--- NOTE | 2019-07-01 13:03 | PN ---
Subjective - Date and Time Seen Date: 07/01/19 Time: 12:59 Objective Objective Narrative: He is POD #6 exploratory laparotomy for release of small bowel obstruction due to adhesions. He is feeling well. Minimal incisional soreness. He has tolerated a regular diet. He has moved his bowels. - Review of Systems Generalized/Overall Review: Reports: No Symptoms Reported. Denies: Chills, Fever EENTM: Reports: No Symptoms Reported Respiratory: Reports: Cough. Denies: Shortness of Breath Cardiac: Denies: Chest Pain Abdominal: Reports: Other - Minimal incisional discomfort, did take pain medication once. Denies: Nausea, Vomiting Genitourinary Symptoms: Reports: No Symptoms Reported Musculoskeletal Complaints: Reports: No Symptoms Reported Neurological: Reports: No Symptoms Reported Skin: Reports: No Symptoms Reported - Vitals Vitals: Last Vital Signs Temp 36.6 C 07/01/19 11:50 Pulse 84 07/01/19 11:50 Resp 20 07/01/19 11:50 BP 133/82 07/01/19 11:50 Pulse Ox 98 07/01/19 11:50 - Exam Constitutional: Present: Alert, Oriented x3, Cooperative, Well nourished, No distress ENT Exam: Present: normal ENT inspection Neck: Present: normal inspection Respiratory: Present: no respiratory distress Abdomen: Present: soft, nontender /Rectal: Present: Exam deferred Extremity: Present: normal range of motion, no calf tenderness Skin Exam: Present: normal color Neurologic: Present: 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 Reviewed surgical discharge instructions with him and his , and he was given phone numbers to call for questions or concerns. He is not to lift. He is to change the dressing on the abdomen as needed but may shower. We will need a follow-up office appointment on 07/08/2019 for staple removal. Other discharge medications and medical follow-up per Dr. Elizabeth Brown - Problems/Diagnosis (1) Partial small bowel obstruction Problem: Resolved
[2019-07-01] MEDS: PANTOPRAZOLE SODIUM 40 MG in NORMAL SALINE 100 ML IV SCH (17:15)
[2019-07-02] MEDS: METOCLOPRAMIDE HCL 5 MG/ML VIAL IV SCH ×2 (01:58→07:24)
[2019-07-02] MEDS: PIPERACILLIN SODIUM/TAZOBACTAM 3.375 GM in DEXTROSE 5 % IN WATER 100 ML IV SCH ×2 (04:39)
[2019-07-02] MEDS: LEVOTHYROXINE SODIUM 50 MCG TABLET PO SCH (07:24)
[2019-07-02] MEDS: POLYVINYL ALCOHOL 150 DROP BTL EACHEYE SCH (08:45)
[2019-07-02] MEDS: APIXABAN 5 MG TABLET PO SCH (08:46)
[2019-07-02] MEDS: ATENOLOL 100 MG TABLET PO SCH (08:46)
[2019-07-02] MEDS: prednisoLONE ACETATE 50 DROP BTL EACHEYE SCH (08:46)
[2019-07-02] MEDS: AMANTADINE HCL 100 MG CAPSULE PO SCH (08:46)
[2019-07-02] MEDS: Minocycline Hcl [Minocin] 100 MG PO SCH (08:46)
[2019-07-02] MEDS: DULoxetine HCL 30 MG CAPSULE.SA PO SCH (08:46)
[2019-07-02] MEDS: clonazePAM 0.5 MG TABLET PO SCH (08:50)
--- NOTE | 2019-07-02 09:04 | DS ---
(1) Partial small bowel obstruction Problem: Resolved (2) Abdominal adhesions Problem: Resolved (3) Atrial fibrillation with RVR Problem: Resolved (4) Parkinsons Problem: Chronic (5) Benign essential hypertension Problem: Chronic Date of Discharge:: 07/02/19 Hospital Course: DC summary done via chart review, as today is the first day I have seen the patient. He was admitted on 06/23/19 after having nausea, vomiting, and abdominal distention, and CT showed partial small bowel obstruction. General surgery was consulted. NG tube placed, and he did well for a couple of days. When the NG tube was clamped, he developed worsened distention, and decision was made to undergo ex lap with lysis adhesions on . He had some vomiting after his surgery, and NG tube stayed in place. He then developed aspiration pneumonitis and new onset afib with RVR on 06/28/19. He was transferred to the SCU for rate control. He was initially given diltiazem, then switched to atenolol. Anticoagulated with eliquis. He had intermittent fevers throughout his stay. He was given zosyn until the day of DC. He also had some decreased oxygenation, but declined Bipap. His nausea and vomiting resolved, and NG was removed. By the day of DC, he was able to ambulate to the bathroom, and was tolerating a regular diet and having bowel movements. He felt comfortable leaving on the the day of DC, 07/02/19. Will DC with 5 days of augmentin. He is to see Dr. Cooper on 07/08/2019 for staple removal. Procedures Performed: see notes below - exploratory laparotomy with lysis adhesions Results and Findings: Lab Pending Results 06/24/19 06:10: WBC 11.6 H, RBC 4.35 L, Hgb 13.6, Hct 40.0 L, MCV 92.0, MCH 31.3 H, MCHC 34.0, RDW 12.9, Plt Count 185, MPV 10.8, Immature Gran % (Auto) 0.50 H, Immature Gran # (Auto) 0.06 H, Neutrophils % 76.8 H, Lymphocytes % 9.7 L, Mon ocytes % 10.9 H, Eosinophils % 1.8, Basophils % 0.3, Nucleated RBC % 0.0, Neutrophils # 8.9 H, Lymphocytes # 1.13 L, Monocytes # 1.3 H, Eosinophils # 0.2, Absolute Basophils 0.0 06/24/19 06:10: Sodium 133, Plasma Sodium 133, Potassium 4.2, Chloride 99, Carbon Dioxide 26.4, Anion Gap 11.8, BUN 13, Creatinine 1.22, Est GFR (Non-Af Amer) 62 D, BUN/Creatinine Ratio 10.7, Random Glucose 97, Calcium 8.5, Calcium Adj for Albumin 8.6, Total Bilirubin 0.8, AST 22, ALT 23, Alkaline Phosphatase 72, Total Protein 7.0, Albumin 3.5 06/25/19 06:30: WBC 10.2, RBC 4.44 L, Hgb 13.5, Hct 40.3 L, MCV 90.8, MCH 30.4, MCHC 33.5, RDW 12.6, Plt Count 179, MPV 10.4, Immature Gran % (Auto) 0.30, Immature Gran # (Auto) 0.03, Neutrophils % 80.0 H, Lymphocytes % 7.5 L, Monocytes % 11.1 H, Eosinophils % 0.8, Basophils % 0.3, Nucleated RBC % 0.0, Neutrophils # 8.2 H, Lymphocytes # 0.76 L, Monocytes # 1.1 H, Eosinophils # 0.1, Absolute Basophils 0.0 06/25/19 06:30: Sodium 134, Plasma Sodium 134, Potassium 3.7, Chloride 101, Carbon Dioxide 23.4 L, Anion Gap 13.3, BUN 11, Creatinine 1.07, Est GFR (Non-Af Amer) 72, BUN/Creatinine Ratio 10.3, Random Glucose 126 H, Calcium 8.4 06/27/19 07:00: WBC 11.3 H, RBC 3.93 L, Hgb 12.2 L, Hct 38.5 L, MCV 98.0, MCH 31.0, MCHC 31.7 L, RDW 13.2, Plt Count 158, MPV 11.5 H, Immature Gran % (Auto) 0.50 H, Immature Gran # (Auto) 0.06 H, Neutrophils % 84.3 H, Lymphocytes % 6.3 L, Monocytes % 7.8, Eosinophils % 0.7, Basophils % 0.4, Nucleated RBC % 0.0, Neutrophils # 9.6 H, Lymphocytes # 0.71 L, Monocytes # 0.9, Eosinophils # 0.1, Absolute Basophils 0.0 06/27/19 07:00: Sodium 138, Plasma Sodium 138, Potassium 3.8, Chloride 102, Carbon Dioxide 23.1 L, Anion Gap 16.7 H, BUN 13, Creatinine 1.02, Est GFR (Non- Af Amer) 77, BUN/Creatinine Ratio 12.7, Random Glucose 99, Calcium 8.3 06/28/19 06:15: WBC 17.7 H D, RBC 3.97 L, Hgb 12.2 L, Hct 36.8 L, MCV 92.7, MCH 30.7, MCHC 33.2, RDW 13.0, Plt Count 265, MPV 10.9, Immature Gran % (Auto) 0.70 H, Immature Gran # (Auto) 0.12 H, Neutrophils % 86.9 H, Lymphocytes % 3.9 L, Monocytes % 8.2, Eosinophils % 0.1, Basophils % 0.2, Nucleated RBC % 0.0, Neutrophils # 15.4 H, Lymphocytes # 0.69 L, Monocytes # 1.4 H, Eosinophils # 0.0, Absolute Basophils 0.0 06/28/19 06:15: Sodium 135, Plasma Sodium 136, Potassium 3.8, Chloride 100, Carbon Dioxide 23.0 L, Anion Gap 15.8 H, BUN 16, Creatinine 1.11, Est GFR (Non- Af Amer) 69, BUN/Creatinine Ratio 14.4, Random Glucose 145 H D, Calcium 8.7 06/28/19 12:16: pCO2 34.5 L, pO2 48.9 L, HCO3 23.2, Total CO2 24.3 H, Base Excess -0.3, ABG pH 7.45, ABG O2 Sat (Measured) 86.5 L 06/28/19 14:30: pCO2 37.4, pO2 59.4 L, HCO3 23.8, Total CO2 24.9 H, Base Excess -0.4, ABG pH 7.42, ABG O2 Sat (Measured) 91.4 L 06/28/19 16:47: pCO2 31.5 L, pO2 181.1 H, HCO3 20.2 L, Total CO2 21.1, Base Excess -3.4 L, ABG pH 7.42, ABG O2 Sat (Measured) 99.3 H 06/28/19 18:11: pCO2 34.9 L, pO2 67.9 L, HCO3 22.7, Total CO2 23.8, Base Excess -1.0, ABG pH 7.43, ABG O2 Sat (Measured) 94.2 06/28/19 19:15: pCO2 35.8, pO2 79.9 L, HCO3 21.7, Total CO2 22.8, Base Excess - 2.5 L, ABG pH 7.40, ABG O2 Sat (Measured) 95.9 06/29/19 05:55: pCO2 36.6, pO2 72.9 L, HCO3 23.8, Total CO2 24.9 H, Base Excess -0.2, ABG pH 7.43, ABG O2 Sat (Measured) 95.2 06/29/19 06:00: WBC 14.0 H D, RBC 3.31 L, Hgb 10.4 L, Hct 31.3 L, MCV 94.6, MCH 31.4 H, MCHC 33.2, RDW 13.2, Plt Count 212, MPV 10.7, Immature Gran % (Auto) 0.60 H, Immature Gran # (Auto) 0.09 H, Neutrophils % 85.6 H, Lymphocytes % 6.1 L, Monocytes % 6.8, Eosinophils % 0.5, Basophils % 0.4, Nucleated RBC % 0.0, Neutrophils # 12.0 H, Lymphocytes # 0.85 L, Monocytes # 1.0, Eosinophils # 0.1, Absolute Basophils 0.1 06/29/19 06:30: Sodium 137, Plasma Sodium 137, Potassium 3.5, Chloride 104, Carbon Dioxide 23.9 L, Anion Gap 12.6, BUN 17, Creatinine 1.02, Est GFR (Non-Af Amer) 77, BUN/Creatinine Ratio 16.7, Random Glucose 110, Calcium 8.3 06/29/19 11:05: pCO2 37.0, pO2 64.1 L, HCO3 25.0, Total CO2 26.2 H, Base Excess 1.1, ABG pH 7.45, ABG O2 Sat (Measured) 93.5 L 06/30/19 06:15: pCO2 34.0 L, pO2 56.9 L, HCO3 23.2, Total CO2 24.3 H, Base Excess -0.1, ABG pH 7.45, ABG O2 Sat (Measured) 91.2 L 06/30/19 06:55: WBC 10.7 H D, RBC 3.39 L, Hgb 10.5 L, Hct 32.2 L, MCV 95.0, MCH 31.0, MCHC 32.6, RDW 13.2, Plt Count 241, MPV 11.1, Immature Gran % (Auto) 0.80 H, Immature Gran # (Auto) 0.09 H, Neutrophils % 81.5 H, Lymphocytes % 8.5 L, Monocytes % 7.4, Eosinophils % 1.4, Basophils % 0.4, Nucleated RBC % 0.0, Neutrophils # 8.8 H, Lymphocytes # 0.91 L, Monocytes # 0.8, Eosinophils # 0.2, Absolute Basophils 0.0 06/30/19 06:55: Sodium 139, Plasma Sodium 139, Potassium 2.9 L, Chloride 103, Carbon Dioxide 25.1, Anion Gap 13.8, BUN 17, Creatinine 1.09, Est GFR (Non-Af Amer) 71, BUN/Creatinine Ratio 15.6, Random Glucose 102, Calcium 8.4 07/01/19 06:35: Sodium 138, Plasma Sodium 138, Potassium 3.7 D, Chloride 104, Carbon Dioxide 25.8, Anion Gap 11.9, BUN 10, Creatinine 1.02, Est GFR (Non-Af Amer) 77, BUN/Creatinine Ratio 9.8, Random Glucose 103, Calcium 7.9 Discharge Location: Home Disposition: Home self-care Condition: Fair Discharge Activity: No Lifting Discharge Diet: Resume usual diet Referrals: Bird Gomez MD [Primary Care Provider] - One Week Prescriptions (Any new or edited meds): Amox Tr/Potassium Clavulanate [Augmentin 500-125 Tablet] 500 mg PO Q12H #10 tab Transmission Status: Pending to [facility], [place] Apixaban [Eliquis] 5 mg PO BID #60 tab Transmission Status: Pending to [facility] [place] Atenolol [Tenormin] 100 mg PO BID #60 tab Transmission Status: Pending to [facility], [place] Acetaminophen [Tylenol] 1,000 mg PO Q8H PRN #60 tab PRN Reason: Mild Pain (Pain Scale 1-3) Transmission Status: Pending to [facility] - [place], [place] Complete Home Medications List: Complete Home Medication List: Ibuprofen [Motrin] 200 - 400 mg PO Q6H PRN 06/29/15 Multivitamins [Multivitamin Leanna] 1 cap PO DAILY 06/29/15 prednisoLONE ACETATE [Pred Forte 1%] 1 drp CELESTEEYE HS 06/29/15 aspirin 81 mg tablet,delayed release 81 mg PO HS 01/22/18 omeprazole 20 mg tablet,delayed release 20 mg PO DAILY #90 tab 03/11/18 minocycline 100 mg capsule 100 mg PO DAILY cap 05/28/18 carboxymethylcellulose sodium 0.5 % eye drops 1 drp EACHEYE QID 08/03/18 tamsulosin 0.4 mg capsule 0.8 mg PO DAILY #60 cap 05/03/19 amantadine HCl 100 mg capsule 100 mg PO BID #60 cap 06/10/19 duloxetine 30 mg capsule,delayed release 30 mg PO DAILY #90 cap 06/10/19 levothyroxine 50 mcg tablet 50 mcg PO DAILY #30 tab 06/10/19 finasteride 5 mg tablet 5 mg PO DAILY #90 tab 06/22/19 clonazePAM [Klonopin] 0.5 mg PO BID 06/23/19 ondansetron 8 mg disintegrating tablet 8 mg PO QID #30 tab 06/23/19 Acetaminophen [Tylenol] 1,000 mg PO Q8H PRN #60 tab 07/02/19 Amox Tr/Potassium Clavulanate [Augmentin 500-125 Tablet] 500 mg PO Q12H #10 tab 07/02/19 Apixaban [Eliquis] 5 mg PO BID #60 tab 07/02/19 Atenolol [Tenormin] 100 mg PO BID #60 tab 07/02/19
[2019-07-02 10:25] VITALS: BP 149/84
== END 2019-07-02 10:00 | disposition home or self-care (01) | DRG 335 ==
LOC: CCFAL → MS 15:22 → SCU 06-28 12:03 → MS 06-29 14:57
PROVIDERS: ADMIT Allergy & Immunology; ATTEND Allergy & Immunology
CPT/HCPCS: 36415; 36600; 71010; 71045; 74019; 74020; 80048; 80053; 81001; 82150; 82803; 83690; 85025; 87086; 93005; 99214; 99215; G0463; J2405